=== PATIENT | male | born 1940 | race Caucasian/White ===

== ENCOUNTER 2018-05-28 14:30 | Outpatient (RCR) | payer OTHER, SELFPAY ==
--- NOTE | 2018-05-19 17:10 | PT.OIE ---
Current Diagnoses Benign paroxysmal vertigo, unspecified ear (05/19/18) Benign paroxysmal vertigo, right ear (05/19/18) History of falling (05/19/18) Past Medical History (Last Updated 02/18/18 @ 08:15 by Siri Nettles) Hypertension (Chronic) Macular degeneration, dry (Chronic) Stroke (Resolved) Provider Visit Care Team Role Provider Type Puma Daniels MD Attending Provider Physician Primary Care Provider Specialty: Internal Medicine Address: [address] [place] [address], [id number] Email: Physical Therapy Initial Evaluation PT-OP-A Visit Information Start: 05/19/18 16:57 Freq: Status: Active Protocol: Document 05/19/18 13:45 DCW (Rec: 05/19/18 17:10 DCW [id number]) Out-Patient Physical Therapy Visit Information Visit Information Visit Type Initial Evaluation Visit Start Time 13:45 Visit Stop Time 14:25 Total Visit Minutes 40 Visit Number 1 Number of ACCOUNT EXECUTIVE TRAINEE Visits 0 Evaluation Information Evaluation Date 05/19/18 PT-OP-B Current Condition Start: 05/19/18 16:57 Freq: Status: Active Protocol: Document 05/19/18 13:45 DCW (Rec: 05/19/18 17:10 DCW [id number]) Current Condition History of Current Condition Onset Date s/p 3 months Current Complaints Position-dependent vertigo History of Current Condition Pt is a 77 year old male complaining of a three month history of motion-induced vertigo. Pt reports episodes last 30 seconds. Symptoms are provoked by Looking up or down , and getting into bed. Symptoms began on when he was trying to get up out of his recliner, and every time he tried, he got very dizzy. He ended up needing to go lay down in bed, and eventually went to the walk-in clinic, where he was given pills and exercises, which didn't do anything. Notes that I'm fine when I'm up walking, or sitting, or driving, it's only when I change positions. Pt denies recent hearing changes, tinnitus, diplopia, dysarthria , discoordination, or decreased mentation/ consciousness. Pt reports symptoms are waxing/waning in nature. Pt denies and negative medical history, leaving his entire medical history sheet blank with the exception of dizziness, however later admitted that he has previously suffered a CVA. Treatment Goals Patient/Caregiver Goals I want to stop getting dizzy. Prior Functional Status Baseline Function- ADL's Independent Baseline Function- Mobility Independent Current Functional Impairments (Reported) Functional Limitations- ADL's Sudden onset of vertigo with changes in position PT-OP-C Subjective Start: 05/19/18 16:57 Freq: Status: Active Protocol: Document 05/19/18 13:45 DCW (Rec: 05/19/18 17:10 DCW [id number]) Patient Questionnaires Dizziness Handicap Inventory DHI Score 22% DHI Functional Impairment 20 to 39% Impaired (Score 20- 39) PT-OP-O Vestibular Start: 05/19/18 16:57 Freq: Status: Active Protocol: Document 05/19/18 13:45 DCW (Rec: 05/19/18 17:10 DCW [id number]) Vestibular Assessment Screening Tests Vestibular Artery Screen Negative Sharp-Aysha Test Negative Auditory Tests Jacob Test Negative Rinne Test Negative Air Conduction Results Equal Visual Testing Smooth Pursuits Horizontal Negative Smooth Pursuits Vertical Negative Saccades Horizontal Negative Gaze Evoked Nystagmus With Fixation Negative Gaze Evoked Nystagmus Without Fixation Negative Heave Test Negative Thrust Head Negative Head Shake Negative Spontaneous Nystagmus Negative Positional Testing Sharon-Hallpike Positive Right Negative Left Upbeating < 60 Seconds PT-OP-Q Treatments Start: 05/19/18 16:57 Freq: Status: Active Protocol: Document 05/19/18 13:45 DCW (Rec: 05/19/18 17:10 DCW [id number]) Canalithic Repositioning BPPV Treatment Cordell Affected Canal(s) Right posterior Reps x2 Comments Pt complained of symptoms in the first and third position, which is normally indicative of a successful treatment. PT-OP-T Assessment and Plan Start: 05/19/18 16:57 Freq: Status: Active Protocol: Document 05/19/18 13:45 DCW (Rec: 05/19/18 17:10 DCW [id number]) Physical Therapy Assessment Rehab Potential Rehabilitation Potential Excellent Evaluation Complexity Number of Personal Factors/Comorbidities 0 Number of Body Systems Impaired 1-2 Clinical Presentation at Evaluation Unstable Impairments Impairments Balance Functional Activities Vestibular Goals Three Impairment Pt has positive right [place]- Hallpike Short Term Goal (STG) Pt to have a negative [place]- Hallpike test bilaterally Two Impairment DHI of 22% Short Term Goal (STG) Pt to score at most 10% dysfunction on DGI STG Duration 06/02/18 One Impairment Pt has sudden onset of vertigo when getting into bed Short Term Goal (STG) Pt to demonstrate no symptoms of vertigo when getting into or out of bed for one week. STG Duration 06/02/18 Assessment Summary Assessment During right Sharon-Hallpike test , pt complained of vertigo and demonstrated up-beating, torsional nystagmus lasting approximately 15 seconds, consistent with diagnosis of right-sided posterior canal BPPV, canalithiasis-type. Pt was treated with a right-sided Cordell maneuver. Pt complained of symptoms in the first and third position, which is normally indicative of a successful treatment. Further positional testing was negative. Pt was educated on BPPV, expectations for treatment, possible recurrence (BPPV has a ~50% recurrence rate in the five years following treatment), and post -Cordell restrictions. Pt to return in ~1 week for a follow -up appointment, and intermittently afterward as indicated for treatment of BPPV. Physical Therapy Plan Frequency and Duration Frequency of Treatment 1x/Week Duration of Treatment 6 weeks Plan of Care Start Date 05/19/18 Plan of Care End Date 06/30/18 Therapeutic Interventions Therapeutic Interventions Balance Training Canalithic Repositioning Vestibular Rehabilitation Next Visit Focus/Plan Next Note Type Treatment Note Next Visit Plan Further positional testing, CRM as indicated
--- NOTE | 2018-05-19 17:10 | PT.OPPOC ---
Current Diagnoses Benign paroxysmal vertigo, unspecified ear (05/19/18) Benign paroxysmal vertigo, right ear (05/19/18) History of falling (05/19/18) Provider Visit Care Team Role Provider Type Puma Daniels MD Attending Provider Physician Primary Care Provider Specialty: Internal Medicine Address: [address] [place] [address], [phone] Email: Plan Of Care PT-OP-T Assessment and Plan Start: 05/19/18 16:57 Freq: Status: Active Protocol: Document 05/19/18 13:45 DCW (Rec: 05/19/18 17:10 DCW [id number]) Physical Therapy Assessment Rehab Potential Rehabilitation Potential Excellent Evaluation Complexity Number of Personal Factors/Comorbidities 0 Number of Body Systems Impaired 1-2 Clinical Presentation at Evaluation Unstable Impairments Impairments Balance Functional Activities Vestibular Goals Three Impairment Pt has positive right [place]- Hallpike Short Term Goal (STG) Pt to have a negative [place]- Hallpike test bilaterally Two Impairment DHI of 22% Short Term Goal (STG) Pt to score at most 10% dysfunction on DGI STG Duration 06/02/18 One Impairment Pt has sudden onset of vertigo when getting into bed Short Term Goal (STG) Pt to demonstrate no symptoms of vertigo when getting into or out of bed for one week. STG Duration 06/02/18 Assessment Summary Assessment During right Sharon-Hallpike test , pt complained of vertigo and demonstrated up-beating, torsional nystagmus lasting approximately 15 seconds, consistent with diagnosis of right-sided posterior canal BPPV, canalithiasis-type. Pt was treated with a right-sided Cordell maneuver. Pt complained of symptoms in the first and third position, which is normally indicative of a successful treatment. Further positional testing was negative. Pt was educated on BPPV, expectations for treatment, possible recurrence (BPPV has a ~50% recurrence rate in the five years following treatment), and post -Cordell restrictions. Pt to return in ~1 week for a follow -up appointment, and intermittently afterward as indicated for treatment of BPPV. Physical Therapy Plan Frequency and Duration Frequency of Treatment 1x/Week Duration of Treatment 6 weeks Plan of Care Start Date 05/19/18 Plan of Care End Date 06/30/18 Therapeutic Interventions Therapeutic Interventions Balance Training Canalithic Repositioning Vestibular Rehabilitation Next Visit Focus/Plan Next Note Type Treatment Note Next Visit Plan Further positional testing, CRM as indicated Plan of Care Dates Plan of Care Start Date 05/19/18 Plan of Care End Date 06/30/18 Please Sign and Return: I have reviewed this Plan of Care and certify that the skilled therapy services above are required to meet the patient?s needs. Physician Signature Date Printed Name and Credentials Clinical Instructor Signature Printed Name and Credentials
--- NOTE | 2018-05-28 15:02 | PT.OTN ---
Current Diagnoses Benign paroxysmal vertigo, unspecified ear (05/28/18) Physical Therapy Treatment Note PT-OP-A Visit Information Start: 05/19/18 16:57 Freq: Status: Active Protocol: Document 05/28/18 14:30 DCW (Rec: 05/28/18 15:01 DCW [id number]) Out-Patient Physical Therapy Visit Information Visit Information Visit Type Treatment Note Visit Start Time 14:30 Visit Stop Time 14:47 Total Visit Minutes 17 Visit Number 2 Number of MANAGER URGENT CARE Visits 0 Evaluation Information Evaluation Date 05/19/18 PT-OP-B Current Condition Start: 05/19/18 16:57 Freq: Status: Active Protocol: Document 05/19/18 13:45 DCW (Rec: 05/19/18 17:10 DCW [id number]) Current Condition History of Current Condition Onset Date s/p 3 months Current Complaints Position-dependent vertigo History of Current Condition Pt is a 77 year old male complaining of a three month history of motion-induced vertigo. Pt reports episodes last 30 seconds. Symptoms are provoked by Looking up or down , and getting into bed. Symptoms began on gi when he was trying to get up out of his recliner, and every time he tried, he got very dizzy. He ended up needing to go lay down in bed, and eventually went to the walk-in clinic, where he was given pills and exercises, which didn't do anything. Notes that I'm fine when I'm up walking, or sitting, or driving, it's only when I change positions. Pt denies recent hearing changes, tinnitus, diplopia, dysarthria , discoordination, or decreased mentation/ consciousness. Pt reports symptoms are waxing/waning in nature. Pt denies and negative medical history, leaving his entire medical history sheet blank with the exception of dizziness, however later admitted that he has previously suffered a CVA. Treatment Goals Patient/Caregiver Goals I want to stop getting dizzy. Prior Functional Status Baseline Function- ADL's Independent Baseline Function- Mobility Independent Current Functional Impairments (Reported) Functional Limitations- ADL's Sudden onset of vertigo with changes in position PT-OP-C Subjective Start: 05/19/18 16:57 Freq: Status: Active Protocol: Document 05/28/18 14:30 DCW (Rec: 05/28/18 15:00 DCW [id number]) OP-PT Subjective Patient Comments Patient Comments Pt reports he is doing better , but still a little goofy. PT-OP-O Vestibular Start: 05/19/18 16:57 Freq: Status: Active Protocol: Document 05/28/18 14:30 DCW (Rec: 05/28/18 15:01 DCW [id number]) Vestibular Assessment Positional Testing [place]-Hallpike Positive Right Negative Left Upbeating < 60 Seconds PT-OP-Q Treatments Start: 05/19/18 16:57 Freq: Status: Active Protocol: Document 05/28/18 14:30 DCW (Rec: 05/28/18 15:00 DCW [id number]) Canalithic Repositioning BPPV Treatment Cordell Affected Canal(s) Right posterior Reps x2 Comments Pt complained of symptoms in the first and third position, which is normally indicative of a successful treatment. PT-OP-T Assessment and Plan Start: 05/19/18 16:57 Freq: Status: Active Protocol: Document 05/28/18 14:30 DCW (Rec: 05/28/18 15:00 DCW [id number]) Physical Therapy Assessment Impairments Impairments Balance Functional Activities Vestibular Goals Three Impairment Pt has positive right [place]- Hallpike Short Term Goal (STG) Pt to have a negative [place]- Hallpike test bilaterally Two Impairment DHI of 22% Short Term Goal (STG) Pt to score at most 10% dysfunction on DGI STG Duration 06/02/18 One Impairment Pt has sudden onset of vertigo when getting into bed Short Term Goal (STG) Pt to demonstrate no symptoms of vertigo when getting into or out of bed for one week. STG Duration 06/02/18 Assessment Summary Assessment Pt again had a positive R- sided Hallpike, displaying the same symptoms as at his evaluation, although symptoms were less severe. Pt was treated with a right-sided Cordell maneuver. Pt complained of symptoms in the first and third position, which is normally indicative of a successful treatment. Further positional testing was negative. Physical Therapy Plan Frequency and Duration Frequency of Treatment 1x/Week Duration of Treatment 6 weeks Plan of Care Start Date 05/19/18 Plan of Care End Date 06/30/18 Therapeutic Interventions Therapeutic Interventions Balance Training Canalithic Repositioning Vestibular Rehabilitation Next Visit Focus/Plan Next Note Type Treatment Note Next Visit Plan Further positional testing, CRM as indicated
--- NOTE | 2018-09-22 11:53 | PT.OPDS ---
Current Diagnoses Benign paroxysmal vertigo, unspecified ear (05/28/18) Provider Visit Care Team Role Provider Type Puma Daniels MD Attending Provider Physician Primary Care Provider Specialty: Internal Medicine Address: [address] [place] [address], [facility] Email: Visit Number Visit Number 2 Discharge Summary PT-OP-B Current Condition Start: 05/19/18 16:57 Freq: Status: Active Protocol: Document 05/19/18 13:45 DCW (Rec: 05/19/18 17:10 DCW [id number]) Current Condition History of Current Condition Onset Date s/p 3 months Current Complaints Position-dependent vertigo History of Current Condition Pt is a 77 year old male complaining of a three month history of motion-induced vertigo. Pt reports episodes last 30 seconds. Symptoms are provoked by Looking up or down , and getting into bed. Symptoms began on giving when he was trying to get up out of his recliner, and every time he tried, he got very dizzy. He ended up needing to go lay down in bed, and eventually went to the walk-in clinic, where he was given pills and exercises, which didn't do anything. Notes that I'm fine when I'm up walking, or sitting, or driving, it's only when I change positions. Pt denies recent hearing changes, tinnitus, diplopia, dysarthria , discoordination, or decreased mentation/ consciousness. Pt reports symptoms are waxing/waning in nature. Pt denies and negative medical history, leaving his entire medical history sheet blank with the exception of dizziness, however later admitted that he has previously suffered a CVA. Treatment Goals Patient/Caregiver Goals I want to stop getting dizzy. Prior Functional Status Baseline Function- ADL's Independent Baseline Function- Mobility Independent Current Functional Impairments (Reported) Functional Limitations- ADL's Sudden onset of vertigo with changes in position PT-OP-C Subjective Start: 05/19/18 16:57 Freq: Status: Active Protocol: Document 05/28/18 14:30 DCW (Rec: 05/28/18 15:00 DCW [id number]) OP-PT Subjective Patient Comments Patient Comments Pt reports he is doing better , but still a little goofy. PT-OP-O Vestibular Start: 05/19/18 16:57 Freq: Status: Active Protocol: Document 05/28/18 14:30 DCW (Rec: 05/28/18 15:01 DCW [id number]) Vestibular Assessment Positional Testing [place]-Hallpike Positive Right Negative Left Upbeating < 60 Seconds PT-OP-T Assessment and Plan Start: 05/19/18 16:57 Freq: Status: Active Protocol: Document 09/22/18 11:52 DCW (Rec: 09/22/18 11:53 DCW [id number]) Physical Therapy Assessment Assessment Summary Assessment Pt was instructed to return to vestibular rehabilitation for treatment of BPPV as indicated. Pt has now not been seen in more than 3 months, and will be discharged from skilled therapy at this time. Physical Therapy Plan Frequency and Duration Frequency of Treatment 1x/Week Duration of Treatment 6 weeks Plan of Care Start Date 05/19/18 Plan of Care End Date 06/30/18 Therapeutic Interventions Therapeutic Interventions Balance Training Canalithic Repositioning Vestibular Rehabilitation Discharge Physical Therapy Discharge Reasons No Longer Attending PT Next Visit Focus/Plan Next Note Type Discharge Summary
== END 2018-09-23 13:10 ==
LOC: PHYS 14:30
PROVIDERS: PCP Student in an Organized Health Care Education/Training Program; Visit Provider Student in an Organized Health Care Education/Training Program
DX: H81.10 Benign paroxysmal vertigo, unspecified ear (principal)
CPT/HCPCS: 95992; 97161

== ENCOUNTER → 2018-07-01 14:00 | Outpatient (CLI) | payer OTHER, SELFPAY ==
--- NOTE | 2018-07-01 14:02 | DI.RAD.S_ITS ---
PROCEDURE: XR CHEST 2V INDICATIONS: cough TECHNIQUE: 2 views of the chest were acquired. COMPARISON: [facility], , CHEST 1 VIEW, 01/10/2013, 12:23. FINDINGS: Surgical changes and devices: None. Lungs and pleura: Lungs are clear considering reduced inspiratory volume. No pleural effusions or pneumothorax. Mediastinum: Mediastinal contours are normal. Heart size is normal. Bones and chest wall: No suspicious bony abnormalities. Soft tissues appear unremarkable. IMPRESSION: Reduced inspiratory volume, no source of cough is found. Dictated by: Ivan Tom M.D. on 07/01/2018 at 14:45 Approved by: Ivan Tom M.D. on 07/01/2018 at 14:45
== END ==
PROVIDERS: PCP Student in an Organized Health Care Education/Training Program; Visit Provider Physician Assistant
DX: R05 Cough (principal)
CPT/HCPCS: 71046

== ENCOUNTER → 2019-06-23 14:33 | Outpatient (CLI) | payer MEDICARE, SELFPAY ==
[2019-06-23 15:54] LABS: BUN Creatinine Ratio 24.3 (6-22); Blood Urea Nitrogen 28 mg/dL (9-20); Estimated Glomerular Filt Rate > 60.0 mL/min (>60)
== END ==
PROVIDERS: PCP Student in an Organized Health Care Education/Training Program; Referring Provider Student in an Organized Health Care Education/Training Program; Visit Provider Student in an Organized Health Care Education/Training Program
DX: I10 Essential (primary) hypertension (principal); M19.90 Unspecified osteoarthritis, unspecified site
CPT/HCPCS: 36415; 82565; 84520

== ENCOUNTER 2019-07-24 11:17 | Observation (INO) | payer MEDICARE, SELFPAY ==
[2019-07-24] VITALS (10 sets, daily range): BP systolic 134–189; BP diastolic 70–87; PULSE 56–76; RESP 12–18; TEMP 36.2–37.2; O2SAT 91–99; BMI 34.0
--- NOTE | 2019-07-24 11:21 | DI.CT.S_ITS ---
PROCEDURE: CT ANGIO HEAD AND NECK INDICATIONS: ? head injury, confusion vs cva TECHNIQUE: Noncontrast images were performed earlier in the day and not repeated. After the administration of intravenous contrast, 1 mm thick sections acquired from the aortic arch through the [place]. Post-contrast 4.5 mm thick sections then re-acquired from the foramen magnum to the vertex. 3-dimensional bzmwcsr-ellycobnr-hpuotqwjxg (MIP) and/or volume rendering reformats were acquired of the central intracranial vasculature and neck separately. COMPARISON: [facility], MR, STROKE PROTOCOL, 01/10/2013, 16:07. [facility], CT, CT STROKE, 07/24/2019, 11:14. [facility], CT, CT CERVICAL SPINE WO CON, 07/24/2019, 11:14. FINDINGS: Image quality: Excellent. BRAIN: CSF spaces: Ventricles are normal in size and shape. Basal cisterns are patent. No extra-axial fluid collections. Brain: No midline shift. No intracranial bleeds or masses. Short-white matter interface appears intact. Skull and face: Calvarium and facial bones appear intact, without suspicious lesions. Orbits appear normal. Sinuses: Sinuses and mastoids are clear. HEAD CT ANGIOGRAPHY: Anterior circulation: Intracranial internal carotid arteries are normal in size and flow. The flow within the paired anterior cerebral arteries is normal and symmetric. The flow within the middle cerebral arteries is normal and symmetric. The anterior communicating artery is not well seen. No aneurysms are seen. Posterior circulation: Visualized portions of the vertebral arteries demonstrate normal caliber, and join to form a normal appearing basilar artery. Flow within the posterior cerebral arteries is normal and symmetric. No aneurysms are seen. NECK CT ANGIOGRAPHY: Carotid system: The great vessels demonstrate a conventional anatomy as they arise from the aortic arch. The origins of the common carotid arteries appear patent. The common carotid arteries demonstrate normal caliber and courses. The bifurcation regions demonstrate atherosclerotic irregularity and calcification. The internal carotid arteries demonstrate normal calibers and courses. Posterior circulation: The origins of the vertebral arteries both appear widely patent. The more superior extracranial portions of both vertebral arteries also demonstrate normal courses and calibers. They join to form a normal appearing basilar artery. Soft tissues: Visualized neck soft tissues demonstrate no suspicious abnormalities. Bones: No suspicious bony lesions. Visualized cervical spine appears normally aligned. Degenerative changes are seen, which are most prominent at the C3-C4 level. 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 IMPRESSION: No acute intracranial process is seen. No significant cranial arterial abnormality can be seen. Within the arteries of the neck, no hemodynamically significant stenosis can be seen. Incidental note is made of: CT C3 congenital fusion Focal C3-C4 degenerative change Any quantitative measurements of stenosis were performed using NASCET criteria. Dictated by: Colton Martinez M.D. on 07/24/2019 at 11:25 Approved by: Colton Martinez M.D. on 07/24/2019 at 11:28
--- NOTE | 2019-07-24 11:21 | DI.CT.S_ITS ---
PROCEDURE: CT CERVICAL SPINE WO CON INDICATIONS: ? fall, confusion, cva vs other TECHNIQUE: Noncontrast 3 mm thick sections acquired from the skull base to the T4 level. Sagittal and coronal reformats were then constructed. For radiation dose reduction, the following was used: automated exposure control, adjustment of mA and/or kV according to patient size. COMPARISON: None. FINDINGS: Image quality: Excellent. Bones: No fractures or dislocations. C2-C3 congenital fusion noted. Visualized superior ribs are intact. Mild multilevel degenerative disc changes and facet arthropathy. Soft tissues: Prevertebral soft tissues are normal in thickness. No paravertebral hematomas. No apical pneumothoraces. IMPRESSION: No fracture. No acute osseous lesion. If symptoms and/or clinical suspicion for pathology persists, evaluation with MRI may be helpful for further assessment. Dictated by: Kira Vaughn MD, PhD on 07/24/2019 at 12:05 Approved by: Kira Vaughn MD, PhD on 07/24/2019 at 12:09
--- NOTE | 2019-07-24 11:21 | DI.CT.S_ITS ---
PROCEDURE: CT STROKE INDICATIONS: ? head injury, confusion vs cva tpa possible TECHNIQUE: Noncontrast 4.5 mm thick angled axial sections acquired from the foramen magnum to the vertex, with coronal reformats. For radiation dose reduction, the following was used: automated exposure control, adjustment of mA and/or kV according to patient size. COMPARISON: [facility], CT, HEAD WITHOUT CONTRAST, 01/10/2013, 12:27. FINDINGS: Image quality: Excellent. CSF spaces: Basal cisterns are patent. No extra-axial fluid collections. The ventricles are symmetric in size and shape. Brain: No intracranial bleeds or masses. There is cerebral volume loss for age, with resultant ventricular and sulcal prominence. There are periventricular and deep white matter chronic small vessel ischemic changes. Small chronic left davis radiata lacunar infarct. There is intracranial internal carotid artery atherosclerosis. Skull and face: Calvarium and visualized facial bones appear intact, without suspicious lesions. Sinuses: Visualized sinuses and mastoids are clear. IMPRESSION: 1. No acute intracranial disease process. 2. No intracranial hemorrhage. 3. Findings telephoned to Dr. Markham on 07/24/2019 at 1134 hrs. This study fulfills neurological imaging criteria for inclusion or exclusion of acute stroke therapies based on available published neurological guidelines. Dictated by: Kira Vaughn MD, PhD on 07/24/2019 at 11:33 Approved by: Kira Vaughn MD, PhD on 07/24/2019 at 11:36
--- NOTE | 2019-07-24 11:22 | ED_ITS ---
HPI - Neuro Symptoms/Deficit General Chief Complaint: Neuro Symptoms/Deficit Stated Complaint: Code Stroke Time Seen by Provider: 07/24/19 11:20 Source: patient and EMS Mode of arrival: EMS Limitations: altered mental status History of Present Illness HPI Narrative: This is a 79-year-old male is brought via EMS for possible code stroke. Patient was last witnessed about 40 minutes prior to EMS arrival so approximately 1 hour prior to arrival in the ED with normal mentation. He was in the garage and came in noted that he had some blood in his head there is a small laceration but no witnessed fall. Patient was confused, was not following commands and was stumbling and having difficulty supporting his we ight. He states initially he did not follow any commands, he had word salad.During transportation here he has started to improve his mentation and although not back to his normal baseline sounds like he has been answering questions more appropriately. He has reported history of stroke in the past, he does not take any medications regularly per EMS no anticoagulants. Patient had driven himself to the car wash and return to this morning without any issues and is normally independent with normal mentation. Related Data Home Medications Medication Instructions Recorded Confirmed No Known Home Medications 07/24/19 07/24/19 Allergies Allergy/AdvReac Type Severity Reaction Status Date / Time No Known Drug Allergies Allergy Verified 01/23/19 10:45 Review of Systems Review of Systems ROS Unobtainable: Unobtainable due to mental status/LOC Patient History Medical History Hypertension (Chronic) Sinusitis (Inactive) Stroke (Resolved) Family History (Updated 02/18/18 @ 08:15 by Siri Nettles) Father [place] (myocardial infarction) Mother Leukemia Sister No problems noted. Social History household members: spouse Smoking Status: Never smoker alcohol intake: current Smoking Status: Never smoker Exam Initial Vital Signs Initial Vital Signs: Vital Signs Temperature 97.1 F L 07/24/19 11:20 Pulse Rate 76 07/24/19 11:20 Respiratory Rate 18 07/24/19 11:20 Blood Pressure 189/85 H 07/24/19 11:20 Pulse Oximetry 91 07/24/19 11:20 GEN: well nourished, well appearing male, alert and oriented to self and location, patient appears to be in mild distress. HEENT: Patient has a laceration of the right scalp that is 1cm in length, no active bleeding at this time, pupils are equal round reactive to light, extraocular movements are intact, nares are clear, TMs are clear with no fluid, there is no conjunctival pallor. Throat is clear without any exudates, erythema, tonsillar enlargement or uvular deviation, no facial droop. HEART: Regular rate and rhythm without murmur, clicks, rubs. pulses are equal in upper and lower extremities LUNGS:Lungs clear to auscultation, no wheezes, rales, crackles, chest moves symmetrically ABD:bowel sounds normal, soft, non-tender, no guarding, rebound, rigidity, no masses noted, no hepatosplenomegaly :No CVA tenderness MSCL: Non-tender, no muscle atrophy, muscles strength 5/5 upper and lower extremities, full range of motion, no drift NEURO:CN 2-12 intact, sensation normal, reflexes 2/4 upper and lower extremities. finger nose finger test normal, heel jones test normal on right, squeeze equal bilaterally, very mild difficulty on left Scores NIH Stroke Scale Level of Conciousness: Alert, keenly responsive Ask month/age: Answers both questions correctly. Open/close eyes, close hand: Performs both tasks correctly Best gaze horizontal: Normal Visual weiss: No visual loss Facial palsy: Normal symetrical movement Left arm drift: No drift for full 10 sec Right arm drift: No drift for full 10 sec Left leg drift: No drift for full 10 sec Right leg drift: No drift for full 10 sec Limb ataxia: Present in one limb (very mild) Sensory on face/arms/legs: Normal, no sensory loss Best language: Mild to moderate, slurs some words Dysarthria: Normal Extinction or inattention: No abnormality Total NIH Stroke scale score: 2 Course Orders Ordered: ED Orders 07/24/19 11:20 EKG-12 Lead Stat 07/24/19 11:[address] angio head and neck Stat CT cervical spine wo con Stat 07/24/19 11:29 Complete Blood Count AUTO DIFF Stat Comprehensive Metabolic Panel Stat Partial Thromboplastin Time Stat Prothrombin Time INR Stat Troponin & CK Cardiac Panel Stat 07/24/19 13:05 MR stroke Stat 07/24/19 15:00 Urine Drug Screen, Rapid Stat Acetaminophen (Tylenol) 650 mg PO Q6HR PRN PRN Reason: Fever/Mild Pain (1-3) Last Admin: 07/24/19 16:30 Dose: 650 mg Documented by: TUCKER Enoxaparin Sodium (Lovenox) 40 mg SUBCUT DAILY STIVEN Sodium Chloride (Normal Saline 0.9%) 1,000 mls @ 100 mls/hr IV CONT STIVEN Last Admin: 07/24/19 16:18 Dose: 100 mls/hr Documented by: TUCKER Ondansetron HCl (Zofran) 4 mg IV Q8HR PRN PRN Reason: Nausea And Vomiting Discontinued Medications Aspirin (Aspirin Chew) 324 mg PO NOW ONE Stop: 07/24/19 11:59 Last Admin: 07/24/19 12:19 Dose: 324 mg Documented by: COLLIN Diphtheria/Tetanus/Acell Pertussis (Adacel) 0.5 ml IM .ONCE ONE Stop: 07/24/19 12:11 Last Admin: 07/24/19 12:19 Dose: 0.5 ml Documented by: COLLIN Sodium Chloride (Normal Saline 0.9%) 1,000 mls @ 150 mls/hr IV CONT STIVEN Last Infusion: 07/24/19 14:27 Dose: 0 mls/hr Documented by: Admin: 07/24/19 12:49 Dose: 150 mls/hr Documented by: COLLIN Vital Signs Vital signs: Vital Signs - 8 hr 07/24/19 11:20 07/24/19 12:06 Temperature 97.1 F L Pulse Rate 76 72 Respiratory Rate 18 15 Blood Pressure 189/85 H Blood Pressure [Right Arm] 189/85 H Pulse Oximetry 91 92 MDM - Neuro Symptoms/Deficit Lab Data Attestation: I reviewed the patient's lab results. Result diagrams: 07/24/19 11:29 07/24/19 11:29 Labs: Lab Results 07/24/19 07/24/19 07/24/19 Range/Units 11:29 11:29 11:29 WBC 9.2 (4.5-11.0) X10^3/uL RBC 4.99 (4.5-5.9) X10^6/uL Hgb 16.0 (13.5-17.5) g/dL Hct 46.6 (41-53) % MCV 93.5 (80-100) fL MCH 32.0 (26-34) PG MCHC 34.3 (30-36) % RDW 13.2 (11.6-14.8) % Plt Count 274 (150-400) X10^3/uL Neut % (Auto) 61.4 (50-75) % Lymph % (Auto) 27.8 (25-40) % Barron % (Auto) 8.2 (3-14) % Eos % (Auto) 1.8 L (2-4) % Baso % (Auto) 0.8 (0-2) % Neut # (Auto) 5600 (8334-5005) /uL Lymph # (Auto) 2500 (6123-4036) /uL Barron # (Auto) 800 (0-900) /uL Eos # (Auto) 200 (0-450) /uL Baso # (Auto) 100 (0-100) /uL PT 11.6 (10.1-12.7) SECONDS INR 1.0 (0.9-1.3) APTT 28 (26.4-36.2) SECONDS Sodium 141 (137-145) mmol/L Potassium 3.5 (3.4-5.1) mmol/L Chloride 107 (98-107) mmol/L Carbon Dioxide 16 L (22-32) mmol/L BUN 29 H (9-20) mg/dL Creatinine 1.52 H (0.66-1.25) mg/dL Estimated GFR 44.7 L (>60) mL/min BUN/Creatinine Ratio 19.1 (6-22) Glucose 149 H (80-110) mg/dL Calcium 9.2 (8.4-10.2) mg/dL Total Bilirubin 1.2 (0.2-1.3) mg/dL AST 28 (17-59) IU/L ALT 18 (<50) IU/L Alkaline Phosphatase 83 (38-126) U/L Total Creatine Kinase 61 (55-170) U/L CK-MB (CK-2) TNP CK-MB (CK-2) Rel Index TNP Troponin I < 0.012 (0.01-0.034) ng/mL Total Protein 8.5 H (6.3-8.2) g/dL Albumin 4.4 (3.5-5.0) g/dL Globulin 4.1 (1.7-4.1) g/dL Albumin/Globulin Ratio 1.1 (1.0-2.8) COVID-19 PCR (Negative) 07/24/19 Range/Units 12:01 WBC (4.5-11.0) X10^3/uL RBC (4.5-5.9) X10^6/uL Hgb (13.5-17.5) g/dL Hct (41-53) % MCV (80-100) fL MCH (26-34) PG MCHC (30-36) % RDW (11.6-14.8) % Plt Count (150-400) X10^3/uL Neut % (Auto) (50-75) % Lymph % (Auto) (25-40) % Barron % (Auto) (3-14) % Eos % (Auto) (2-4) % Baso % (Auto) (0-2) % Neut # (Auto) (1995-8624) /uL Lymph # (Auto) (1911-2445) /uL Barron # (Auto) (0-900) /uL Eos # (Auto) (0-450) /uL Baso # (Auto) (0-100) /uL PT (10.1-12.7) SECONDS INR (0.9-1.3) APTT (26.4-36.2) SECONDS Sodium (137-145) mmol/L Potassium (3.4-5.1) mmol/L Chloride (98-107) mmol/L Carbon Dioxide (22-32) mmol/L BUN (9-20) mg/dL Creatinine (0.66-1.25) mg/dL Estimated GFR (>60) mL/min BUN/Creatinine Ratio (6-22) Glucose (80-110) mg/dL Calcium (8.4-10.2) mg/dL Total Bilirubin (0.2-1.3) mg/dL AST (17-59) IU/L ALT (<50) IU/L Alkaline Phosphatase (38-126) U/L Total Creatine Kinase (55-170) U/L CK-MB (CK-2) CK-MB (CK-2) Rel Index Troponin I (0.01-0.034) ng/mL Total Protein (6.3-8.2) g/dL Albumin (3.5-5.0) g/dL Globulin (1.7-4.1) g/dL Albumin/Globulin Ratio (1.0-2.8) COVID-19 PCR Negative (Negative) Point of Care Testing Glucose POC 142 ECG Data Attestation: I personally reviewed and interpreted this ECG as follows: Interpretation: Sinus rhythm left axis deviation, incomplete right bundle branch. Rate of 83 RI 188 QRS of 106 and QTC of 479. No ST elevation or depression. MDM Narrative Medical decision making narrative: Patient comes in he was last seen normal at 9:30 a.m. by his . She states that he came in from the garage he was unsteady confused although she states his medication is improving significantly. He kept asking about their dog. He does not have any medical issues currently and is not on any medications regularly and is not on any anticoagulants. She noticed that there was a gash on his head and that it had been bleeding. It is unclear if patient had a head injury which then caused confusion or if he potentially had a stroke that caused the fall and injury. Patient did have some difficulty on his NIH scale he could not name the cactus but could name other objects. He does have a history of macular degeneration but was able to visualize images. And had possibly some very mild weakness in his right lower extremity in terms of ataxia. Because of recent head laceration and improving symptoms patient seems unlikely candidate for tpa but is within window. There is potential for altered mental status from concussion/head injury although patient does have some mild ataxia on left leg and difficulty with verbalizing cactus on cards. Discussed with Dr. Rhodes from neurology at [facility], he would would like to see and discussed with patient and family via tele stroke. Patient was evaluated by Dr. Rhodes via telestroke, patient has continued to improve his speech even seems to improve he is able to list all of the questions on the card and his ataxia in his left leg is very mild and may be secondary as he is able to elicit that he has been having some issues and weakness in that leg and even had some sciatica recently. He seems to be less confused. states he does seemto be at his baseline at this time. At this time it was decided that tPA is not appropriate for the patient as he is continuing to improve on that the risk versus benefits we will not give. Patient, his and myself are all in agreement with this plan as well. CTA results were also relayed to Dr. Liu, no acute occlusion. Patient BP has also improved. Differential includes CVA/TIA, Closed head injury, seizure versus other. Patient case was discussed with Dr. Castro who accepts for observation, MRI stroke protocal ordered. He did receive ASA 324mg. BP jhas improved although still elevated in department. Critical Care Time Critical Care Time Critical Care Time: Yes Total Critical Care Time: 65 Attestation: The high probability of a clinically significant, sudden or life threatening deterioration of the [neurologic] system(s) required my full and direct attention, intervention and personal management. The aggregate critical care time was [65] minutes. This time is in addition to time spent performing reporte d procedures but includes the following: [x] Data Review and interpretation [x] Patient assessment and monitoring of vital signs [x] Documentation [x] Medication orders and management Discharge Plan Departure Patient Disposition: Admitted as Observation Clinical Impression: Head injury, Laceration of scalp, Acute alteration in mental status Discharge Date/Time: 07/24/19 14:26 Admit Date/Time: 07/24/19 13:07 Admit Provider: Mehrdad Castro
[2019-07-24 11:32] LABS: Add Manual Diff / Slide Review NO; Basophils Absolute Auto 100 /uL (0-100); Basophils Percent Auto 0.8 % (0-2); Eosinophils Absolute Auto 200 /uL (0-450); Eosinophils Percent Auto 1.8 % (2-4); Hematocrit 46.6 % (41-53); Lymphocytes Absolute Auto 2500 /uL (1100-4500); Lymphocytes Percent Auto 27.8 % (25-40); Mean Corpuscular HGB Conc 34.3 % (30-36); Mean Corpuscular Volume 93.5 fL (80-100); Monocytes Absolute Auto 800 /uL (0-900); Monocytes Percent Auto 8.2 % (3-14); Neutrophils Absolute Auto 5600 /uL (1500-7000); Neutrophils Percent Auto 61.4 % (50-75); Platelet Count 274 X10^3/uL (150-400); Red Blood Cell Count 4.99 X10^6/uL (4.5-5.9); Red Cell Distribution Width 13.2 % (11.6-14.8); White Blood Cell Count 9.2 X10^3/uL (4.5-11.0)
[2019-07-24 11:39] LABS: Prothrombin Time 11.6 SECONDS (10.1-12.7)
[2019-07-24 11:42] LABS: PTT Partial Thromboplastin Tim 28 SECONDS (26.4-36.2)
[2019-07-24 11:44] LABS: Alanine Aminotransferase 18 IU/L (<50); Albumin 4.4 g/dL (3.5-5.0); Albumin Globulin Ratio 1.1 (1.0-2.8); Alkaline Phosphatase 83 U/L (38-126); Aspartate Aminotransferase 28 IU/L (17-59); BUN Creatinine Ratio 19.1 (6-22); Bilirubin Total 1.2 mg/dL (0.2-1.3); Blood Urea Nitrogen 29 mg/dL (9-20); Calcium 9.2 mg/dL (8.4-10.2); Carbon Dioxide 16 mmol/L (22-32); Chloride 107 mmol/L (98-107); Creatine Kinase 61 U/L (55-170); Estimated Glomerular Filt Rate 44.7 mL/min (>60); Globulin 4.1 g/dL (1.7-4.1); Glucose 149 mg/dL (80-110); HEMOLYSIS 21 (0-50); Potassium 3.5 mmol/L (3.4-5.1); Sodium 141 mmol/L (137-145); Total Protein 8.5 g/dL (6.3-8.2)
--- NOTE | 2019-07-24 11:51 | PC.NURSE ---
NIH slight limb ataxia in left
[2019-07-24 11:55] LABS: Troponin I < 0.012 ng/mL (0.01-0.034)
[2019-07-24] MEDS: TET,DIPH,PERTUSS(ACELL),VAC/PF 0.5 ML SYRINGE IM (12:19)
[2019-07-24] MEDS: ASPIRIN 81 MG CHEW TAB 324 MG PO (12:19)
[2019-07-24] MEDS: SODIUM CHLORIDE 0.9% 1,000 ML 150 ML IV (12:49)
--- NOTE | 2019-07-24 12:52 | PC.NURSE ---
Patient in room with . Mentation is improving. Pre hospital IV is 18ga EMS right forearm. Primary IV given in hospital is left forearm.
--- NOTE | 2019-07-24 13:05 | DI.MRI.S_ITS ---
PROCEDURE: MR STROKE Pre- and post-contrast brain MRI, non-contrast brain MR angiogram, pre- and postcontrast neck MR angiogram INDICATIONS: possible cva vs head injury TECHNIQUE: Brain: Noncontrast axial T1 spin echo, axial T2 fast spin echo, sagittal and axial FLAIR, coronal T2 fast spin echo, axial gradient echo, axial diffusion and ADC through the brain. After the administration of contrast, axial 3D VIBE of the cranial vasculature and brain. Brain MRA: Non-contrast 3-D time of flight MR angiogram, with multiple zyaegct-omkxugjut-ocmswawhgg (MIP) reformats performed. Neck MRA: Axial and sagittal TruFISP through the neck. Coronal dynamic MR angiogram during administration of contrast in the arterial and venous phases, with 3-dimenstional myudauy-dbtkuuzsj-fhwltsjgfc (MIP) reformats constructed from subtraction images. COMPARISON: [facility], CT, CT ANGIO HEAD AND NECK, 07/24/2019, 11:14. [facility], CT, CT CERVICAL SPINE WO CON, 07/24/2019, 11:14. [facility], CT, CT STROKE, 07/24/2019, 11:14. [facility], MR, STROKE PROTOCOL, 01/10/2013, 16:07. FINDINGS: Image quality: Excellent. BRAIN: CSF spaces: Ventricles are normal in size and shape. Basal cisterns are patent. No extra-axial fluid collections. Brain: No intracranial bleeds or mass effects. Short-white matter interface is normal. Diffusion weighted images show no acute ischemic insults. Brain parenchymal volume loss is seen. Chronic small vessel ischemic changes are seen. Brainstem appears normal. Normal intravascular flow voids are present. No abnormal intracranial enhancement. Skull and face: Calvarial marrow signal is normal. Orbits appear normal. Note is made of bilateral lens replacements. Sinuses: Sinuses and mastoids are clear. BRAIN MR ANGIOGRAM: Anterior circulation: Intracranial internal carotid arteries are normal in size and enhancement. The flow within the paired anterior cerebral arteries is normal and symmetric. The flow within the middle cerebral arteries is normal and symmetric. The anterior communicating artery is seen. No stenoses, occlusions, or aneurysms. Posterior circulation: The visualized portions of the vertebral arteries demonstrate normal caliber, and join to form a normal appearing basilar artery. The flow within the posterior cerebral arteries is normal and symmetric. No stenoses, occlusions, or aneurysms. NECK MR ANGIOGRAM: Carotids: Great vessels demonstrate a conventional anatomy as they arise from the aortic arch. The origins of the common carotid arteries appear patent. The calibers and courses of both common carotid arteries are normal. The bifurcation regions appear normal bilaterally. The internal carotid arteries demonstrate normal course and caliber. 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 Posterior circulation: The origins of the vertebral arteries appear patent. More superior portions of both vertebral arteries demonstrate normal course and caliber, and join to form a normal appearing basilar artery. Miscellaneous: Subclavian arteries appear patent. The previously described right proximal to an artery stenosis is again seen. Pre-contrast images through the neck show no soft tissue abnormalities. IMPRESSION: BRAIN MRI: No findings of acute or subacute infarction can be seen. Note is made of age-appropriate brain parenchymal volume loss and chronic small vessel ischemic changes. No masses or abnormal enhancement can be seen. BRAIN MR ANGIOGRAM: Unremarkable intracranial arteriogram. NECK MR ANGIOGRAM: No significant internal carotid artery or vertebral artery stenosis can be seen. 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 There is again seen focal narrowing of the right proximal subclavian artery. Dictated by: Colton Martinez M.D. on 07/25/2019 at 10:15 Approved by: Colton Martinez M.D. on 07/25/2019 at 10:21
[2019-07-24 15:23] LABS: Ur Creatinine Normal (Normal); Ur Specific Gravity Normal (Normal); Urine pH Normal (Normal)
[2019-07-24 15:23] LABS: COVID19 -Nasal RAPID Negative (Negative)
[2019-07-24 15:24] LABS: UR Morphine/Opiate cutoff 300 Negative (Negative); Urine Amphetamines Negative (Negative); Urine Barbiturates Negative (Negative); Urine Benzodiazepines Negative (Negative); Urine Cocaine Negative (Negative); Urine MDMA Negative (Negative); Urine Methadone Negative (Negative); Urine Methamphetamines Negative (Negative); Urine Oxycodone Negative (Negative); Urine Phencyclidine Negative (Negative); Urine Tetrahydrocannabinol Negative (Negative); Urine Tricyclic Antidepressant Negative (Negative)
--- NOTE | 2019-07-24 15:33 | PC.NURSE ---
Day Shift- Report rec'd from ARIS Keene in ED at 1359. Pt arrived to unit in room 220, settled by NECK BAND MAKER at 1445. Report given to ARIS Cooper Evening shift at 1520.
--- NOTE | 2019-07-24 15:48 | PM.HP.1 ---
History of Present Illness History of Present Illness Date Patient Seen: 07/24/19 Time Patient Seen: 15:48 Chief complaint: Code Stroke Narrative: Mehrdad Rhodes is a 79-year-old male with a past medical history of possible TIA, HTN (not on medication) who presented to the emergency room via EMS for a possible stroke. Patient was in the garage and came into the house and his had noticed that he had some blood in his head and that he was confused, not following commands, and was having difficulty supporting his weight. She stated he was very unsteady on his feet, and she was trying to get him to remain seated on the couch, but he would not listen and repeatedly tried to get up. 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 She noted that he would only say the new puppies name, but not anything else. This is when she called EMS. She did not notice any focal weakness, facial droop, or other abnormality. The patient does not recall the event at all, and states that he remembers waking up on the sofa. He does not recall what happened. states that he may have had a bookshelf as there were some items that are normally on the bookshelf that were on the floor, but she did not notice any blood near the car or elsewhere in the house. He was recently given a prescription for gabapentin, however this was not helping with his left leg sciatica and he had stopped taking it about a week ago. He takes no other medications. He is very functional at baseline. Patient reports of possible TIA in the past, but was never officially diagnosed and has not been on medications. Upon my evaluation, patient is fully alert and oriented and back to baseline. He still feels a bit groggy but much improved. He denies any prior episodes like this, he does not remember falling, or any of the events as noted above. He reports no prior seizures. He does not take any anticoagulants. He denies any prior heart history, and he has had no recent chest pain, shortness of breath, fever, chills, nausea, vomiting, abdominal pain, diarrhea, constipation, lower extremity edema, orthopnea. In the emergency room, patient was hypertensive but other vital signs are unremarkable. Documentations shows a stroke scale of 2 for mild dysarthria as well as some mild left-sided ataxia which may have been due to his known sciatica. Initial CT head did not show any evidence of hemorrhage. CT a head and neck was also unremarkable. Chest x-ray was also unremarkable. Initial laboratory evaluation showed a hemoglobin of 16, but otherwise unremarkable CBC. Chemistries revealed a potassium of 3.5, creatinine of 1.52 from a baseline of 1.1 last month. His glucose was 149. Troponin was negative. U tox was negative. [place] neurology was consulted and did not recommend tPA giving improved in symptoms and unclear diagnosis. Patient was admitted under observation for possible TIA. Patient History Medical History Hypertension (Chronic) Sinusitis (Inactive) Stroke (Resolved) Family & Social History Family History (Updated 02/18/18 @ 08:15 by Siri Nettles) Father [place] (myocardial infarction) Mother Leukemia Sister No problems noted. Safety & Behavioral: Feels Safe in Current Yes Environment Tobacco & Substance use: Smoking Status Never smoker alcohol intake current alcohol intake frequency 0-2 drinks per day Substance Use Type does not use Meds Home Medications and Allergies Home Medications Medication Instructions Recorded Confirmed Type No Known Home Medications 07/24/19 07/24/19 History Allergies Allergy/AdvReac Type Severity Reaction Status Date / Time No Known Drug Allergies Allergy Verified 01/23/19 10:45 Review of Systems Review of Systems Narrative: All other systems reviewed with the patient and are negative unless otherwise stated. Exam Vital Signs (past 8 hours): - 07/24/19 11:20 07/24/19 12:06 07/24/19 13:31 Temperature 97.1 F L Pulse Rate 76 72 64 Respiratory Rate 18 15 17 Blood Pressure 189/85 H Blood Pressure [Right Arm] 189/85 H 151/78 H Pulse Oximetry 91 92 97 07/24/19 14:23 07/24/19 14:26 Temperature 98.3 F Pulse Rate 63 65 Respiratory Rate 12 18 Blood Pressure 151/78 H 148/70 H Blood Pressure [Right Arm] Pulse Oximetry 99 95 Oxygen Delivery Method Room Air Oxygen Flow Rate 0 Narrative Exam Narrative: GENERAL APPEARANCE: Well developed, well nourished, in no acute distress. SKIN: Inspection of the skin reveals no rashes, ulcerations or petechiae. HEENT: Normocephalic, healed laceration on the forehead with dried blood. Extraocular muscles are intact, oropharynx is clear and mucous membranes are moist, neck is supple without adenopathy NECK: Supple and symmetric. There was no thyroid enlargement, and no tenderness, or masses were felt. CHEST: Normal AP diameter and normal contour without any kyphoscoliosis. LUNGS: Auscultation of the lungs revealed no wheezes, rhonchi, or rales. CARDIOVASCULAR: There was a regular rate and rhythm without any murmurs, gallops, rubs. Peripheral pulses were 2+ and symmetric. ABDOMEN: Soft and nontender with normal bowel sounds. No ascites was noted. MUSCULOSKELETAL: There was no tenderness or effusions noted. Muscle strength and tone were normal. EXTREMITIES: No cyanosis, clubbing or edema. NEUROLOGIC: Alert and oriented x 3. Normal affect. Strength is +5/5 in the Upper Extremities and Lower Extremities Bilaterally. Sensation to touch was normal. Rapid alternating movements smooth and coordinated. Objective ECG Impression: Sinus rhythm, rate 83. Left axis deviation. Incomplete right bundle branch block. No evidence of ST elevation or depression. There is P-wave inversion noted in lead 3, no other leads. Labs Result Diagrams: 07/24/19 11:29 07/24/19 11:29 Labs: Laboratory Results - last 24 hr 07/24/19 07/24/19 07/24/19 11:29 11:29 11:29 WBC 9.2 RBC 4.99 Hgb 16.0 Hct 46.6 MCV 93.5 MCH 32.0 MCHC 34.3 RDW 13.2 Plt Count 274 Neut % (Auto) 61.4 Lymph % (Auto) 27.8 [place] % (Auto) 8.2 Eos % (Auto) 1.8 L Baso % (Auto) 0.8 Neut # (Auto) 5600 Lymph # (Auto) 2500 [place] # (Auto) 800 Eos # (Auto) 200 Baso # (Auto) 100 PT 11.6 INR 1.0 APTT 28 Sodium 141 Potassium 3.5 Chloride 107 Carbon Dioxide 16 L BUN 29 H Creatinine 1.52 H Estimated GFR 44.7 L BUN/Creatinine Ratio 19.1 Glucose 149 H Calcium 9.2 Total Bilirubin 1.2 AST 28 ALT 18 Alkaline Phosphatase 83 Total Creatine Kinase 61 CK-MB (CK-2) TNP CK-MB (CK-2) Rel Index TNP Troponin I < 0.012 Total Protein 8.5 H Albumin 4.4 Globulin 4.1 Albumin/Globulin Ratio 1.1 U Opiates 300ng/mL cut Ur Oxycodone Screen Urine Methadone Screen Ur Barbiturates Screen U Tricyclic Antidepress Ur Phencyclidine Scrn Ur Amphetamines Screen U Methamphetamines Scrn Ur MDMA Scrn (Ecstasy) U Benzodiazepines Scrn Urine Cocaine Screen U Marijuana (THC) Screen 07/24/19 15:00 WBC RBC Hgb Hct MCV MCH MCHC RDW Plt Count Neut % (Auto) Lymph % (Auto) [place] % (Auto) Eos % (Auto) Baso % (Auto) Neut # (Auto) Lymph # (Auto) [place] # (Auto) Eos # (Auto) Baso # (Auto) PT INR APTT Sodium Potassium Chloride Carbon Dioxide BUN Creatinine Estimated GFR BUN/Creatinine Ratio Glucose Calcium Total Bilirubin AST ALT Alkaline Phosphatase Total Creatine Kinase CK-MB (CK-2) CK-MB (CK-2) Rel Index Troponin I Total Protein Albumin Globulin Albumin/Globulin Ratio U Opiates 300ng/mL cut Negative Ur Oxycodone Screen Negative Urine Methadone Screen Negative Ur Barbiturates Screen Negative U Tricyclic Antidepress Negative Ur Phencyclidine Scrn Negative Ur Amphetamines Screen Negative U Methamphetamines Scrn Negative Ur MDMA Scrn (Ecstasy) Negative U Benzodiazepines Scrn Negative Urine Cocaine Screen Negative U Marijuana (THC) Screen Negative Assessment & Plan Assessment & Plan narrative: Mehrdad Rhodes is a 79-year-old male with a past medical history of possible TIA, HTN (not on medication) who presented to the emergency room via EMS for a possible stroke. He is admitted under observation status for a possible TIA, other etiologies for this event may include cardiogenic syncope, or trauma with corresponding concussion however will likely not be able to conclusively determine if MRI and echocardiogram are unremarkable. 1. Delirium, acute, present on admission, improved -etiologies include possible TIA given presentation with some slurred speech and ataxia noted by ER provider and These have resolved as of my exam. Further included are possible syncopal episode, potentially cardiac in nature, or traumatic loss of consciousness given head laceration with corresponding concussion. -will obtain MRI brain and echocardiogram for a TIA evaluation and concern for possible stroke. -patient was given full-dose aspirin in the emergency room, will continue 81 mg dose daily -risk stratify with A1c, TSH, lipid panel -Urine drug screen was negative -COVID-19 rapid testing was negative -continue telemetry over concern for possible cardiogenic etiology of syncope. EKG does show an incomplete right bundle-branch block. Troponins negative and patient without chest pains, no indication for repeat troponin at this time. 2. Acute kidney injury, present on admission -creatinine of 1.52, up from baseline of 1.1 approximately a month ago. -patient has not had much p.o. intake today with, will rehydrate and recheck chemistries in the morning. 3. Hypertension, present on admission, likely chronic -continue to follow and will start antihypertensive medications if necessary. His blood pressure is improving without pharmacologic intervention as of this afternoon. Code: Full, elects surrogate decision maker as his Dispo: Admitted under observation as his stay is not expected to exceed 2 midnights, pending MRI of his brain and echocardiogram. DVT: Lovenox daily
[2019-07-24] MEDS: SODIUM CHLORIDE 0.9% 1,000 ML 100 ML IV (16:18)
[2019-07-24] MEDS: ACETAMINOPHEN 325 MG TABLET 650 MG PO (16:30)
[2019-07-25] VITALS: O2SAT 95
[2019-07-25] MEDS: SODIUM CHLORIDE 0.9% 1,000 ML 100 ML IV (02:13)
[2019-07-25 04:00] VITALS: O2SAT 94
[2019-07-25 04:50] VITALS: BP 131/67; PULSE 50; RESP 18; TEMP 36.9; O2SAT 94
[2019-07-25 06:34] LABS: Add Manual Diff / Slide Review NO; Basophils Absolute Auto 100 /uL (0-100); Basophils Percent Auto 0.6 % (0-2); Eosinophils Absolute Auto 100 /uL (0-450); Eosinophils Percent Auto 1.7 % (2-4); Hemoglobin 14.1 g/dL (13.5-17.5); Lymphocytes Absolute Auto 1500 /uL (1100-4500); Lymphocytes Percent Auto 18.1 % (25-40); Mean Corpuscular HGB Conc 34.3 % (30-36); Mean Corpuscular Hemoglobin 31.9 PG (26-34); Mean Corpuscular Volume 93.2 fL (80-100); Monocytes Absolute Auto 800 /uL (0-900); Monocytes Percent Auto 9.7 % (3-14); Neutrophils Absolute Auto 5900 /uL (1500-7000); Neutrophils Percent Auto 69.9 % (50-75); Platelet Count 216 X10^3/uL (150-400); Red Cell Distribution Width 13.3 % (11.6-14.8); White Blood Cell Count 8.4 X10^3/uL (4.5-11.0)
[2019-07-25 06:41] LABS: Hemoglobin A1C% w Est Avg Glu 5.6 % (4.0-6.0)
[2019-07-25 06:46] LABS: Alanine Aminotransferase 15 IU/L (<50); Albumin 3.5 g/dL (3.5-5.0); Alkaline Phosphatase 59 U/L (38-126); Aspartate Aminotransferase 31 IU/L (17-59); BUN Creatinine Ratio 17.6 (6-22); Bilirubin Total 1.4 mg/dL (0.2-1.3); Bilirubin Unconjugated 1.3 mg/dL (0.0-1.1); Blood Urea Nitrogen 23 mg/dL (9-20); Calcium 8.4 mg/dL (8.4-10.2); Carbon Dioxide 24 mmol/L (22-32); Chloride 110 mmol/L (98-107); Estimated Glomerular Filt Rate 53.1 mL/min (>60); Globulin 3.5 g/dL (1.7-4.1); Glucose 94 mg/dL (80-110); HEMOLYSIS < 15 (0-50); Potassium 3.4 mmol/L (3.4-5.1); Sodium 140 mmol/L (137-145)
[2019-07-25 06:56] LABS: Cholesterol 140 mg/dL (140-199); HDL Cholesterol 24 mg/dL (40-60); LDL Cholesterol Calculated 104 mg/dL (<100); Triglycerides 61 mg/dL (35-150)
[2019-07-25 07:14] LABS: TSH w/ Reflex to FT4 0.59 uIU/mL (0.47-4.68)
[2019-07-25 08:00] VITALS: BP 159/93; PULSE 53; RESP 18; TEMP 36.3; O2SAT 96
[2019-07-25] MEDS: SODIUM CHLORIDE 0.9% FLUSH 10 ML IV (08:59)
[2019-07-25] MEDS: ENOXAPARIN 40 MG/0.4 ML SYRINGE SUBCUT (08:59)
[2019-07-25] MEDS: ASPIRIN EC 81 MG TABLET PO (09:00)
[2019-07-25] MEDS: LORazepam 2 MG/ML INJ 1 MG IV (09:56)
[2019-07-25 10:08] VITALS: O2SAT 96
--- NOTE | 2019-07-25 10:25 | PT.IIE ---
Medical History (Last Reviewed 07/24/19 @ 11:25 by Kay Markham DO) Hypertension (Chronic) Sinusitis (Inactive) Stroke (Resolved) Physical Therapy Inpatient Evaluation/Re-Eval M1 PT/OT-IP Prior Functional Status Start: 07/25/19 08:31 Freq: NEEDED Status: Active Protocol: Document 07/25/19 09:59 AW (Rec: 07/25/19 10:25 AW [id number]) Medical Review Prior Functional Status Medical History Reviewed Yes Diet/Fluid Consistency Regular Communication WNL; Pt had mild dysarthria at time of admission per H&P but is an effective verbal communicator at baseline Mobility and Gait Independent without AD. Pt states he walks his puppy in the [place] [facility] up to one hour nearly every day. Activities of Daily Living and IADL's Independent including driving, finances, home management Prior Functional Level (Other details) Pt reports no known falls in the past year. He does not recall the likely fall that precipitated his admission to this episode of care. Social History Household Members spouse Living Arrangements House Number of Floors (Floors) One Floor Number of Stairs To Enter/Railing? 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 He lives with his and 6- month old puppy and is generally active. M2 PT-IP Current Condition Start: 07/25/19 08:31 Freq: NEEDED Status: Active Protocol: Document 07/25/19 09:59 AW (Rec: 07/25/19 10:25 AW [id number]) Physical Therapy Current Condition Current Condition Evaluation Date 07/25/19 Treatment Diagnosis possible TIA/CVA; difficulty in walking Onset Date 07/24/19 M3 PT-IP Subjective Start: 07/25/19 08:31 Freq: NEEDED Status: Active Protocol: Document 07/25/19 09:59 AW (Rec: 07/25/19 10:25 AW [id number]) Subjective Physical Therapy Visit Type Type Initial Evaluation Visit Start Time 09:24 Visit Stop Time 09:45 Total Visit Minutes 21 Physical Therapy Visit Comments Patient Comments Pt is feeling good and is happy to participate with PT Patient Goals To go home at discharge and return to work and regular walks with his dog Therapy Pain Assessment Pain When Pain Assessed During Mobility Pain Present Pain Present Denied Pain M4 PT-IP Mobility and Gait Start: 07/25/19 08:31 Freq: NEEDED Status: Active Protocol: Document 07/25/19 09:59 AW (Rec: 07/25/19 10:25 AW [id number]) PT-Bed Mobility Assessment Supine to Sit Supine to Sit Independent Scooting Scooting to Edge of Bed Independent PT-Transfer Assessment Sit to and From Stand Sit to and from Stand Independent Equipment Transfer Assistive Device None,Gait Belt Orthotic/Prosthetic Devices or Brace: No Transfers Transfer Destination Chair Transfer Technique pt ambulated independently Transfer Ability Level of Assist Independent Comments Mobility Comments Pt performed all bed mobility independently but slowly, complaining of stiffness and difficulty moving on the hospital bed. He stood without AD and ambulated the halls for gait and stairs assessment . Upon return to the room, he transferred indepenently to the chair and was left with OT Gait Assessment Gait Gait Assistance Required: Standby Assistance Distance (Feet) 250 Assistive Devices Assistive Device None,Gait Belt Orthotic/Prosthetic Devices or Brace: No Gait Deviations General Gait Pattern Antalgic,Decreased Feet Clearance,Lateral Trunk Lean, Wide Based Gait Factors Limiting Gait Function Factors Limiting Gait Function Decreased Strength Comments Gait Comments Pt ambulated in the halls with gait notable for lateral trunk lean in right stance; however, he required no assist and ambulated safely. Pt scored 12/12 on Modified Dynamic Gait Index, indicating low risk of falls and low likelihood of vestibular involvement. Stair Climbing Assessment Evaluation Level of Assist On Stairs Independent Devices Stair Climbing Assistive Devices Right Railing Technique/Endurance Stair Climbing Direction Ascend and Descend Stair Climbing Technique Step Over Step,Step to Step Number of Steps Climbed 3 Query Text: Stair Climbing Set # Repetitions (reps) 2 Comments Stair Climbing Comments Pt used the ascending right rail with step over step pattern ascending and step-to pattern descending which he attributed to his underlying LLE sciatica. PT-Balance Assessment Sitting Balance and Reactions Static Sitting Balance Ability Normal Dynamic Sitting Balance Ability Normal Standing Balance and Reactions Static Standing Balance Ability Good Dynamic Standing Balance Ability Good Device Used none Balance Tests Single Limb Standing 5 sec each Romberg normal with eyes open and closed Comments Other Balance Tests/Deviations/Treatment No evidence of imbalance with : static testing or with DGI M5 PT-IP Objective Assessments Start: 07/25/19 08:31 Freq: NEEDED Status: Active Protocol: Document 07/25/19 09:59 AW (Rec: 07/25/19 10:25 [id number]) Orientation Orientation/Cognition Level of Alertness Alert Orientation Name,Day of Week,Place, Situation Language Function Ability No Deficits Noted Safety Awareness Understands Safety Issues Memory Description Short Term Impaired Comments Pt unable to recall events leading to his current hospital admission. He was able to recall 1/3 words after five minutes of distraction ( apple). He attempted to recall table but said desk. He was able to recall francois when given the clue that the object was a coin. Gross Range of Motion Upper Extremity ROM Assessment Within Functional Limits Lower Extremity ROM Assessment Within Functional Limits Strength Lower Extremity Strength Assessment Bilaterally Impaired Hip 4/5 Knee 4+/5 Ankle 5/5 Coordination Assessment Gross Coordination Gross Coordination WNL Assessment Finger to Nose Test Normal Performance Pronation/Supination Test Normal Performance Heel on [place] Test Normal Performance Sensation Assessment Sensation Gross Sensation WNL Comments Sensation Comments Pt states he has had sensation disturbance in his LLE from buttock to knee over the past six months but notices no change at this time. Muscle Tone Muscle Tone WNL Yes M6 PT-IP Treatment Start: 07/25/19 08:31 Freq: NEEDED Status: Active Protocol: Document 07/25/19 09:59 AW (Rec: 07/25/19 10:25 [id number]) Physical Therapy Treatment Education Education Provided Safety Other Treatments Other Treatment Performed Provided education on role of PT, plan of care, and signs of CVA. M7 PT-IP Assessment and Plan Start: 07/25/19 08:31 Freq: NEEDED Status: Active Protocol: Document 07/25/19 09:59 AW (Rec: 07/25/19 10:25 [id number]) PT Summary Assessment and Plan Potential Rehabilitation Potential Excellent Status of Condition at Evaluation Stable Summary Assessment Summary Eddie is a 79 yo man seen for PT evaluation after being admitted following likely fall followed by speech disturbance. He has history of HTN, LLE sciatica, and BPPV. 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 On evaluation, cranial nerve assessment was grossly normal with no sign of occulomotor or vestibular disturbance. Static and dynamic balance were good as demonstrated by modified DGI score of 12/12. Speech was clear and coordination was normal. Pt did appear to struggle with short term memory as he was unable to recall the events leading to his admission; nor was he able to recall 2/3 words he was asked to remember. Purely based on mobility, pt will be safe to discharge to home environment with spouse support as needed. He may benefit from outpatient speech therapy to address memory impairment. Frequency of Treatment Frequency Of Treatment Discharge Discharge Recommendations PT Discharge Recommendations Home Other Discharge Recommendations OP speech therapy Transportation Needs at Discharge Private Vehicle
[2019-07-25 11:56] VITALS: BP 150/88; PULSE 57; RESP 18; TEMP 36.6; O2SAT 97
--- NOTE | 2019-07-25 12:22 | OT.IP.EVAL ---
Past Medical History (Last Reviewed 07/24/19 @ 11:25 by Kay Markham DO) Hypertension (Chronic) Sinusitis (Inactive) Stroke (Resolved) Occupational Therapy Inpatient Evaluation/Re-Eval M1 PT/OT-IP Prior Functional Status Start: 07/25/19 08:31 Freq: NEEDED Status: Active Protocol: Document 07/25/19 15:09 CGR (Rec: 07/25/19 15:28 CGR [email or web address]) Medical Review Prior Functional Status Medical History Reviewed Yes Diet/Fluid Consistency Regular Communication WNL; Pt had mild dysarthria at time of admission per H&P but is an effective verbal communicator at baseline Mobility and Gait Independent without AD. Pt states he [place] his [place] in the [place] up to one hour nearly every day. Activities of Daily Living and IADL's Independent including driving, finances, home management Prior Functional Level (Other details) Pt reports no known falls in the past year. He does not recall the likely fall that precipitated his admission to this episode of care. Social History Household Members spouse Living Arrangements House Number of Floors (Floors) One Floor Number of Stairs To Enter/Railing? 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 He lives with his and 6- month old puppy and is generally active. M2 OT-IP Current Condition Start: 07/25/19 15:09 Freq: Status: Active Protocol: Document 07/25/19 15:09 CGR (Rec: 07/25/19 15:28 CGR [email or web address]) Occupational Therapy Current Condition Current Condition Evaluation Date 07/25/19 Treatment Diagnosis TIA Diagnosis Onset Date 07/24/19 M3 OT- IP Subjective and Pain Start: 07/25/19 15:09 Freq: Status: Active Protocol: Document 07/25/19 15:09 CGR (Rec: 07/25/19 15:28 CGR [email or web address]) OT- Subjective Occupational Therapy Visit Type Type Initial Evaluation Visit Start Time 09:45 Visit Stop Time 10:05 Total Visit Minutes 35 Notes Initial evaluation performed in AM [id number] when pt went to MRI. Returned from [id number] for SLUMS. OT Pain Assessment Pain Present Pain Present Denied Pain M4 OT- IP ADL's Start: 07/25/19 15:09 Freq: Status: Active Protocol: Document 07/25/19 15:09 CGR (Rec: 07/25/19 15:28 CGR [email or web address]) OT [id number] General Evaluation Self-Feeding Ability Independent Comments OT Self-Feeding Comments Lunch duing SLUMS OT ADL-Grooming General Evaluation Grooming Ability Independent Areas Needing Assistance Face Washing Comments OT Grooming Comments standing at sink OT ADL-Oral Care General Eval Oral Care Ability Independent Comments Oral Care Comments standing at sink OT ADL-Dressing General Eval Upper Body Dressing Ability Independent Lower Body Dressing Ability Independent OT ADL-Toileting General Evaluation Toileting Ability Independent OT ADL-Bathing Comments OT Bathing Comments Not assessed M5 OT- IP IADL's Start: 07/25/19 15:09 Freq: Status: Active Protocol: Document 07/25/19 15:09 CGR (Rec: 07/25/19 15:28 CGR [email or web address]) OT-Instrumental Activities of Daily Living Deficits IADL Deficits Identified No Deficits Home Safety Awareness Awareness of Need for Assistance at Home Good Awareness Ability to Problem Solve Emergency Able to Problem Solve Situations Medication Management Medication Management No Deficits Identified Money Management Money Management No Deficits Identified Meal Preparation Meal Preparation No Deficits Identified 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 No Deficits Identified Driving Driving Comments 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 OT- IP Functional Cognition Start: 07/25/19 15:09 Freq: Status: Active Protocol: Document 07/25/19 15:09 CGR (Rec: 07/25/19 15:28 CGR [email or web address]) Cognitive Factors Limiting Selfcare Function Cognitive Ability Level of Alertness Alert Patient Orientation Name,Age,Birthday,Month,Date, Year,Day of Week,Place, Situation Attention Span Ability Capable of Focused Attention, Capable of Sustained Attention Ability to Follow Commands Able to Follow Multi-Step Commands Memory Description Short Term Impaired Safety Awareness No Deficits Noted Problem Solving Ability No deficits Noted Cognitive Tests SLUMS Performed SLUMS d/t noted STM deficits. Pt scored a 22/30 missing points for remembering objects and answering questions from a short paragraph. Pt appeared surprised with the results of this stating that he has to remember things for his work all the time and hasn't had problems. This may be new onset with the current medical situation. OT- Vision and Hearing OT- Hearing Assessment OT- Hearing Assessment Hearing Impaired,Use of Hearing Aids OT- Vision Assessment Vision History Macular Degeneration Visual Attentiveness WFL Occular Pursuits WFL M7 OT- IP Mobility and Balance Start: 07/25/19 15:09 Freq: Status: Active Protocol: Document 07/25/19 15:09 CGR (Rec: 07/25/19 15:28 CGR [email or web address]) OT- Bed Mobility Assessment Rolling Level of Assistance Independent Supine to Sit Supine to Sit Assist Independent Sit to Supine Sit to Supine Assist Independent Scooting Scooting to Edge of Bed Independent Scooting Up and Down in Bed Independent OT-Transfer Assessment Sit to and From Stand Sit to and from Stand Independent Transfers Transfer Ability Independent Technique Transfer Destination Bed,Chair,Toilet Transfer Technique Stand Step Pivot Devices Transfer Assistive Devices None OT- Gait Assessment Gait Gait Assistance Required: Independent Assistive Devices Assistive Device None OT- Balance Assessment Sitting Balance and Reactions Static Sitting Balance Ability Normal Dynamic Sitting Balance Ability Normal M8 OT- IP Objective Assessments Start: 07/25/19 15:09 Freq: Status: Active Protocol: Document 07/25/19 15:09 CGR (Rec: 07/25/19 15:28 CGR [email or web address]) OT Gross Range of Motion Upper Extremity Range of Motion Assessment Within Functional Limits OT Strength Upper Extremity Strength Assessment Within Functional Limits OT- Coordination Assessment Upper Extremity Finger to Nose Test Within Functional Limits Finger Tapping Test Within Functional Limits OT-Muscle Tone Assessment Muscle Tone WNL Yes OT Sensation Assessment Edema Edema Absent M9 OT- IP Assessment and Plan Start: 07/25/19 15:09 Freq: Status: Active Protocol: Document 07/25/19 15:09 CGR (Rec: 07/25/19 15:28 CGR [email or web address]) OT Summary Assessment and Plan Potential Rehabilitation Potential Excellent Analytic Complexity at Evaluation Low Summary OT Impairments Functional Cognition Progress Towards Goals Goals Met Assessment Summary Pt presents after fall at home and confusion. Pt presents on this date at his baseline of IND with the exception on noted memory deficits. Cog assessments performed with a on the SLUMS. Pt would benefit from further cog work up as an outpatient. Requested referal to outpatient from Dr. Castro and notified CM of request. No further OT needs at this time. Frequency of Treatment Frequency Of Treatment Discharge Discharge Recommendations OT Discharge Recommendations Home Transportation Needs at Discharge Private Vehicle
--- NOTE | 2019-07-25 14:27 | PC.NURSE ---
Addendum entered by Sanjana Milan R.N. 07/25/19 15:35: Discharge: IV's dc'd intact. Tele dc'd. Reviewed all d/c instructions thoroughly with patient. No new meds, no usual home meds. Instructed to call PCP office Saturday to schedule f/u 1-3 weeks. Verbalized understanding of all d/c info and stated no further questions. All belongings collected and sent with patient. Wheeled out to private vehicle by this senior mortgage underwriter. Original Note: Shift summary: A&O X3. NIH score 0. Steady on feet with SBA, calls appropriately. Denies pain/discomfort. MRI completed. Tele monitoring ongoing. Call light within reach. ECHO being done in room at this time.
--- NOTE | 2019-07-25 15:03 | P.DS_ITS ---
History of Present Illness History of Present Illness Chief complaint: Code Stroke Narrative: Mehrdad Rhodes is a 79-year-old male with a past medical history of possible TIA, HTN (not on medication) who presented to the emergency room via EMS for a possible stroke. Patient was in the garage and came into the house and his had noticed that he had some blood in his head and that he was confused, not following commands, and was having difficulty supporting his weight. She stated he was very unsteady on his feet, and she was trying to get him to remain seated on the couch, but he would not listen and repeatedly tried to get up. 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 She noted that he would only say the new puppies name, but not anything else. This is when she called EMS. She did not notice any focal weakness, facial droop, or other abnormality. The patient does not recall the event at all, and states that he remembers waking up on the sofa. He does not recall what happened. states that he may have had a bookshelf as there were some items that are normally on the bookshelf that were on the floor, but she did not notice any blood near the car or elsewhere in the house. He was recently given a prescription for gabapentin, however this was not helping with his left leg sciatica and he had stopped taking it about a week ago. He takes no other medications. He is very functional at baseline. Patient reports of possible TIA in the past, but was never officially diagnosed and has not been on medications. Upon my evaluation, patient is fully alert and oriented and back to baseline. He still feels a bit groggy but much improved. He denies any prior episodes like this, he does not remember falling, or any of the events as noted above. He reports no prior seizures. He does not take any anticoagulants. He denies any prior heart history, and he has had no recent chest pain, shortness of breath, fever, chills, nausea, vomiting, abdominal pain, diarrhea, constipation, lower extremity edema, orthopnea. In the emergency room, patient was hypertensive but other vital signs are unremarkable. Documentations shows a stroke scale of 2 for mild dysarthria as well as some mild left-sided ataxia which may have been due to his known sciatica. Initial CT head did not show any evidence of hemorrhage. CT a head and neck was also unremarkable. Chest x-ray was also unremarkable. Initial laboratory evaluation showed a hemoglobin of 16, but otherwise unremarkable CBC. Chemistries revealed a potassium of 3.5, creatinine of 1.52 from a baseline of 1.1 last month. His glucose was 149. Troponin was negative. U tox was negative. [facility] neurolog[facility] was consulted and did not recommend tPA giving improved in symptoms and unclear diagnosis. Patient was admitted under observation for possible TIA. Discharge Providers Provider Date of admission: 07/24/19 13:07 Discharge Date: 07/25/19 Primary care physician: Puma Daniels MD Consults: 07/24/19 15:50 Consult to Discharge Planning Routine Comment: Consult to Occupational Therapy Evaluate & Treat Comment: Physician Instructions: Evaluate and treat Consult to Physical Therapy Evaluate & Treat Comment: Physician Instructions: Evaluate and Treat Discharge provider: Mehrdad Castro DO Summary Hospital Course Discharge Diagnosis: Please see hospital course by problem list noted below Hospital Course: Mehrdad Rhodes is a 79-year-old male with a past medical history of possible TIA, HTN (not on medication) who presented to the emergency room via EMS for a possible stroke. He was admitted under observation status for a possible TIA, other etiologies for this event may include cardiogenic syncope, or trauma with corresponding concussion. MRI was negative for an acute infarct, and telemetry view revealed no cardiogenic source possible syncope. His echocardiogram was also unremarkable with a normal ejection fraction and no wall motion abnormalities. He also had a mild ANTONIO that improved with rehydrati on. His risk stratification labs including TSH, A1c, and cholesterol panel were unremarkable. 1. Delirium, acute, present on admission, improved -etiologies include possible TIA given presentation with some slurred speech and ataxia noted by ER provider, however These resolved as of my exam. Further included are possible syncopal episode, potentially cardiac in nature, or traumatic loss of consciousness given head laceration with corresponding concussion. Given negative workup favor concussion as the most likely etiology. -MRI and echocardiogram as noted above -patient was given full-dose aspirin in the emergency room. Given negative evaluation no further aspirin therapy is recommended -risk stratification labs with A1c, TSH, and lipid panel were unremarkable. -Urine drug screen was negative -COVID-19 rapid testing was negative -EKG did show an incomplete right bundle-branch block. Troponins negative and patient without chest pains. Telemetry did not reveal any cardiac arrhythmias. -OT evaluation revealed a slums score of 22, however this was done after receiving IV benzodiazepine before undergoing MRI, as well as during a possible concussion. OT did recommend outpatient speech or further occupational therapy as an outpatient for repeat examination. 2. Acute kidney injury, present on admission -creatinine of 1.52, up from baseline of 1.1 approximately a month ago. Imp roved to 1.31 the following morning with rehydration. 3. Hypertension, present on admission, likely chronic -patient was mildly hypertensive, but asymptomatic. Recommend outpatient follow-up with primary care provider to check on his symptoms and for a repeat blood pressure check. Exam Vital Signs (past 8 hours): - 07/25/19 08:00 07/25/19 10:08 07/25/19 11:56 Temperature 97.4 F L 97.8 F Pulse Rate 53 L 57 L Respiratory Rate 18 18 Blood Pressure 159/93 H 150/88 H Pulse Oximetry 96 96 97 Oxygen Delivery Method Room Air Oxygen Flow Rate 0 Narrative Exam Narrative: GENERAL APPEARANCE: Well developed, well nourished, in no acute distress. SKIN: Inspection of the skin reveals no rashes, ulcerations or petechiae. HEENT: Normocephalic atraumatic, extraocular muscles are intact, oropharynx is clear and mucous membranes are moist, neck is supple without adenopathy NECK: Supple and symmetric. There was no thyroid enlargement, and no tenderness, or masses were felt. CHEST: Normal AP diameter and normal contour without any kyphoscoliosis. LUNGS: Auscultation of the lungs revealed no wheezes, rhonchi, or rales. CARDIOVASCULAR: There was a regular rate and rhythm without any murmurs, gallops, rubs. Peripheral pulses were 2+ and symmetric. ABDOMEN: Soft and nontender with normal bowel sounds. No ascites was noted. MUSCULOSKELETAL: There was no tenderness or effusions noted. Muscle strength and tone were normal. EXTREMITIES: No cyanosis, clubbing or edema. NEUROLOGIC: Alert and oriented x 3. Normal affect. Gait was normal. Strength is +5/5 in the Upper Extremities and Lower Extremities Bilaterally. Sensation to touch was normal. Objective Labs Result Diagrams: 07/25/19 06:10 07/25/19 06:10 Labs: Laboratory Results - last 24 hr 07/24/19 07/24/19 07/25/19 12:01 15:00 06:10 WBC 8.4 RBC 4.40 L Hgb 14.1 Hct 41.0 MCV 93.2 MCH 31.9 MCHC 34.3 RDW 13.3 Plt Count 216 Neut % (Auto) 69.9 Lymph % (Auto) 18.1 L Worth % (Auto) 9.7 Eos % (Auto) 1.7 L Baso % (Auto) 0.6 Neut # (Auto) 5900 Lymph # (Auto) 1500 Worth # (Auto) 800 Eos # (Auto) 100 Baso # (Auto) 100 Sodium Potassium Chloride Carbon Dioxide BUN Creatinine Estimated GFR BUN/Creatinine Ratio Glucose Hemoglobin A1c Calcium Magnesium Total Bilirubin Conjugated Bilirubin Unconjugated Bilirubin AST ALT Alkaline Phosphatase Total Protein Albumin Globulin Albumin/Globulin Ratio Triglycerides Cholesterol LDL Cholesterol, Calc HDL Cholesterol TSH U Opiates 300ng/mL cut Negative Ur Oxycodone Screen Negative Urine Methadone Screen Negative Ur Barbiturates Screen Negative U Tricyclic Antidepress Negative Ur Phencyclidine Scrn Negative Ur Amphetamines Screen Negative U Methamphetamines Scrn Negative Ur MDMA Scrn (Ecstasy) Negative U Benzodiazepines Scrn Negative Urine Cocaine Screen Negative U Marijuana (THC) Screen Negative COVID-19 PCR Negative 07/25/19 07/25/19 07/25/19 06:10 06:10 06:10 WBC RBC Hgb Hct MCV MCH MCHC RDW Plt Count Neut % (Auto) Lymph % (Auto) Worth % (Auto) Eos % (Auto) Baso % (Auto) Neut # (Auto) Lymph # (Auto) Worth # (Auto) Eos # (Auto) Baso # (Auto) Sodium 140 Potassium 3.4 Chloride 110 H Carbon Dioxide 24 BUN 23 H Creatinine 1.31 H Estimated GFR 53.1 L BUN/Creatinine Ratio 17.6 Glucose 94 Hemoglobin A1c 5.6 Calcium 8.4 Magnesium 2.0 Total Bilirubin 1.4 H Conjugated Bilirubin 0.0 Unconjugated Bilirubin 1.3 H AST 31 ALT 15 Alkaline Phosphatase 59 Total Protein 7.0 Albumin 3.5 Globulin 3.5 Albumin/Globulin Ratio 1.0 Triglycerides 61 Cholesterol 140 LDL Cholesterol, Calc 104 H HDL Cholesterol 24 L TSH 0.59 U Opiates 300ng/mL cut Ur Oxycodone Screen Urine Methadone Screen Ur Barbiturates Screen U Tricyclic Antidepress Ur Phencyclidine Scrn Ur Amphetamines Screen U Methamphetamines Scrn Ur MDMA Scrn (Ecstasy) U Benzodiazepines Scrn Urine Cocaine Screen U Marijuana (THC) Screen COVID-19 PCR Discharge Plan Discharge Plan Patient Disposition: Home Discharge comment: Your admitted to the hospital after an episode of confusion yesterday. It is unclear if this was a TIA, concussion, or syncopal event and your evaluation did not reveal a definitive cause. Your MRI was negative for a stroke and showed no evidence of injuries. Your cardiac monitoring was negative. He should have an evaluation done by speech therapist has recommended by occupational therapy. Please follow-up with her primary care provider in the next 1-2 weeks. Your blood pressure was mildly elevated and you may need to start a medication depending on your blood pressures in the clinic. Discharge orders & Medications Prescriptions: No Action No Known Home Medications RF: 0 Follow up/Referrals: Puma Daniels MD [Primary Care Provider] - Discharge Health Status Health Concerns: Possible TIA, concussion, or syncopal event Acute kidney injury Diet/Activity/Treatments Diet: Diet as Tolerated Activity: As tolerated, do recommend resting over the next 1-2 days Visit Report/Discharge Packet Instructions: How to Prevent Falls Visit Report Forms: Patient Portal/API, Stroke Signs & Symptoms Discharge Data Primary Care Provider: Puma Daniels Attending Provider: Mehrdad Castro Admit Date/Time: 07/24/19 13:07 Discharges patient from system. Discharge Date/Time: 07/25/19 15:37 Quality VTE Deep Vein Thrombosis/Pulmonary Embolism Present on Admission: No
--- NOTE | 2019-07-25 15:49 | CM.IDA ---
Initial DCP Assessment Note: Pt is a 79 yo male, resident of [place]. Patient presents after a fall at home, TIA r/o PCP: Puma Daniels Payer: YULISSA DOW Met w/patient this morning to explain SW role. Patient is in good spirits, states he is eager to return home. 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 Patient has been cleared by the therapy team for return home today. DC order now in place for return home. Patient has indeed suffered from a TIA and will need close outpt f/u P: DC home w/family via pov w/close outpt f/u [facility] Dunbar
--- NOTE | 2019-07-25 15:51 | DI.ECHO.S_ITS ---
[facility] +---------+ [facility] +---------+ : : [address] : : : : [id number] : : : : Phone: [phone]+ Echocardiogram Report + + :Name: JER CHAVEZ Study Date: 07/25/2019 Height: 69 in : :[facility] Weight: 230 lb : : Gender: Male BSA: 2.2 m2 : :: 1940 Age: 79 yrs BP: 150/88 mmHg: :Reason For Study: SYNCOPE VS. TIA : :Ordering Physician: Erickson : :Hospitalist Performed By: Radha Moore : :Referring: JER NGUYEN : + + Interpretation Summary The left ventricle is normal in size. The ejection fraction is estimated to be 60-65%. There has been no significant change since the previous exam. There are no obvious focal wall motion abnormalities noted but poor endocardial definition reduces the sensitivity for the detection of such. Diastolic parameters suggest a relaxation abnormality of the left ventricle, consistent with probable normal filling pressures. The right ventricle is normal in size and function. The right ventricular systolic pressure is estimated to be at least 34 mmHg based on an estimated right atrial pressure of 3 mm Hg. Compared to the prior echo exam, there has been an increase in the severity of pulmonary hypertension (prior RVSP was 28 mmHg). Both atria are normal in size. There is no significant valvular heart disease. The ascending aorta is moderately enlarged nad has increased from 3.7 cm to 4.2 cm. No obvious source for cardiac embolic stroke. Procedure: A two-dimensional transthoracic echocardiogram with color flow and Doppler was performed. The study quality was technically adequate. Comparison is made with the echocardiogram of 01/14/2013. The patient was in sinus bradycardia with heart rates between 54-61 bpm during the exam. Left Ventricle: The left ventricle is normal in size. There is normal left ventricular wall thickness. There is no ventricular septal defect visualized. The ejection fraction is estimated to be 60-65%. There has been no significant change since the previous exam. There are no obvious focal wall motion abnormalities noted but poor endocardial definition reduces the sensitivity for the detection of such. Diastolic parameters suggest a relaxation abnormality of the left ventricle, consistent with probable normal filling pressures. Right Ventricle: The right ventricle is normal in size and function. Atria: Both atria are normal in size. There is no Doppler evidence for an interatrial shunt. Mitral Valve: The mitral valve is normal in structure and function. There is trace mitral regurgitation. Aortic Valve: The aortic valve opens well. There is mild aortic valve sclerosis. There is trace aortic regurgitation. Tricuspid Valve: The tricuspid valve is normal in structure and function. There is a trace or physiologic amount of tricuspid regurgitation. The right ventricular systolic pressure is estimated to be at least 34 mmHg based on an estimated right atrial pressure of 3 mm Hg. Compared to the prior echo exam, there has been an increase in the severity of pulmonary hypertension. Pulmonic Valve: The pulmonic valve is not well visualized. There is no significant valvular heart disease. Great Vessels: The aortic root is normal size. The ascending aorta is moderately enlarged. The aortic arch is normal in size. The IVC is of normal diameter and collapses greater than 50% with a sniff. This suggests a low right atrial pressure of 3 mm Hg. Pericardium/ Pleura There is no pericardial effusion. MMode/2D Measurements & Calculations LVIDd: 5.7 cm LVOT diam: 2.1 cm LVIDs: 3.8 cm Ao root diam: 3.6 cm FS: 32.0 % asc Aorta Diam: 4.2 cm EPSS: 0.61 cm Ao Arch Diam (Prox Trans): 2.5 cm IVSd: 1.1 cm LVPWd: 0.92 cm LV bonilla. diameter/BSA (cm/m^2): 2.6 LV sys. diameter/BSA (cm/m^2): 1.8 LA A2 area: 25.4 cm2 RA long axis: 5.1 cm LA A4 area: 19.9 cm2 RA area: 14.8 cm2 LA length (vol): 5.9 cm RA vol: 36.5 ml LA vol: 72.5 ml RA : 16.6 ml/m2 LA vol index: 33.1 ml/m2 IVC diam: 1.8 cm RVD1 (basal): 3.4 cm RVD2 (mid): 2.8 cm TAPSE: 2.7 cm Doppler Measurements & Calculations Ao V2 max: 166.0 cm/sec LVOT Max Will: 108.4 cm/sec Ao V2 mean: 103.4 cm/sec LV V1 max P.7 mmHg Ao max P.0 mmHg LV V1 VTI: 24.0 cm Ao mean P.9 mmHg BERNADETTE(I,D): 2.9 cm2 Ao V2 VTI: 28.9 cm BERNADETTE(V,D): 2.3 cm2 sev ratio: 0.83 BERNADETTE indexed to BSA (cm^2/m^2): 1.3 MV E max will: 79.1 cm/sec TR max will: 276.3 cm/sec MV A max will: 104.8 cm/sec TR max P.5 mmHg MV E/A: 0.75 PA V2 max: 90.2 cm/sec Med Peak E' Will: 6.4 cm/sec PA V2 mean: 57.9 cm/sec E/E' med: 12.3 PA mean P.5 mmHg Lat Peak E' Will: 6.1 cm/sec PA Accel Time: 0.06 sec E/E' lat: 12.9 E/e' average: 12.6 MV dec time: 0.29 sec MV P1/2t: 84.9 msec MV P1/2t max will: 79.3 cm/sec SV(LVOT): 83.0 ml MVA(P1/2t): 2.6 cm2 Reading Physician:05:11 PM
== END 2019-07-25 15:37 | disposition home or self-care (01) ==
LOC: ED 13:01 → AC 13:08
PROVIDERS: Admitting Provider Internal Medicine; Emergency Provider Emergency Medicine; PCP Student in an Organized Health Care Education/Training Program; Referring Provider Emergency Medicine; Visit Provider Internal Medicine
DX: R29.818 Other symptoms and signs involving the nervous system (principal); N17.9 Acute kidney failure, unspecified; I10 Essential (primary) hypertension; R41.0 Disorientation, unspecified; R47.81 Slurred speech; R27.0 Ataxia, unspecified; Z11.59 Encounter for screening for other viral diseases; I45.10 Unspecified right bundle-branch block; S01.81XA Laceration without foreign body of other part of head, initial encounter
CPT/HCPCS: 36415; 70450; 70496; 70498; 70548; 70553; 72125; 80048; 80053; 80061; 80076; 80305; 82550; 82962; 83036; 83735; 84443; 84484; 85025; 85610; 85730; 87635; 90471; 93005; 93306; 96361; 96372; 96374; 97129; 97161; 97165; 99285; 99291; G0378; 90715; A9579; J1650; J2060; Q9967

== ENCOUNTER → 2019-12-16 09:37 | Outpatient (CLI) | payer MEDICARE, SELFPAY ==
[2019-07-24 15:26] VITALS: BMI 34.0
[2019-12-16 11:03] LABS: BUN Creatinine Ratio 18.3 (6-22); Blood Urea Nitrogen 20 mg/dL (9-20); Calcium 8.7 mg/dL (8.4-10.2); Carbon Dioxide 23 mmol/L (22-32); Chloride 108 mmol/L (98-107); Cholesterol 156 mg/dL (140-199); Estimated Glomerular Filt Rate > 60.0 mL/min (>60); Glucose 90 mg/dL (80-110); HDL Cholesterol 35 mg/dL (40-60); HEMOLYSIS < 15 (0-50); LDL Cholesterol Calculated 104 mg/dL (<100); Potassium 4.3 mmol/L (3.4-5.1); Sodium 138 mmol/L (137-145); Triglycerides 84 mg/dL (35-150)
== END ==
PROVIDERS: PCP Student in an Organized Health Care Education/Training Program; Referring Provider Student in an Organized Health Care Education/Training Program; Visit Provider Student in an Organized Health Care Education/Training Program
DX: E78.5 Hyperlipidemia, unspecified (principal); N17.9 Acute kidney failure, unspecified
CPT/HCPCS: 36415; 80048; 80061

== ENCOUNTER → 2020-04-14 16:27 | Outpatient (CLI) | payer MEDICARE, SELFPAY ==
[2019-07-24 15:26] VITALS: BMI 34.0
[2020-04-14 17:48] LABS: Influenza A - CEPHEID Flu A NEGATIVE (NEGATIVE); Influenza B - CEPHEID Flu B NEGATIVE (NEGATIVE)
[2020-04-14 18:14] LABS: COVID19 -Nasal RAPID Negative (Negative)
== END ==
PROVIDERS: PCP Student in an Organized Health Care Education/Training Program; Visit Provider Student in an Organized Health Care Education/Training Program
DX: R05 Cough (principal); Z20.822 Contact with and (suspected) exposure to COVID-19
CPT/HCPCS: 87502; 87635

== ENCOUNTER → 2021-08-03 08:12 | Outpatient (CLI) | payer MEDICARE, SELFPAY ==
[2019-07-24 15:26] VITALS: BMI 34.0
--- NOTE | 2021-08-03 08:14 | DI.MRI.S_ITS ---
PROCEDURE: MR LUMBAR SPINE WO CON INDICATIONS: Back pain with L sided sciatica >6 weeks TECHNIQUE: Noncontrast sagittal T1 spin echo and T2 fast echo, sagittal STIR, and T2 fast spin echo through the lumbar spine. In cases with scoliosis, additional coronal T2 fast spin echo may be performed. COMPARISON: [facility], CT, ABDOMEN/PELVIS WITH CONTRAST, 10/26/2011, 7:47. FINDINGS: Image quality: Excellent. Alignment and Curvature: There is minimal retrolisthesis seen at L1-L2, L2-L3, L3-L4, and L4-L5. Mild dextroconvex scoliotic curvature is seen. Bone Marrow: Marrow is of normal overall signal. No acute vertebral body compression fractures. Spinal Cord: Conus medullaris terminates at the L1 level. Visualized cord demonstrates normal signal and size. Paraspinous Soft Tissues: No paravertebral masses. The aorta is mildly aneurysmal measuring 4.2 cm AP x 4.7 cm transversely. Apparent bilateral peripelvic cysts can be seen. T12-L1: Normal appearance. L1-L2: Mild loss of disc height is seen. Loss of disc signal is seen. Mild generalized disc bulge is seen. There is a superimposed central disc protrusion. There is a focal annular fissure seen posteriorly. Moderate bilateral neural foraminal narrowing is seen. Mild to moderate central canal narrowing is seen. L2-L3: At least moderate loss of disc height and disc signal can be seen on the left side. Bridging endplate osteophytes are seen. Reactive marrow endplate changes are seen, which are hyperintense on T1-weighted and T2-weighted imaging and most consistent with fatty metaplasia (Modic type II changes). Moderate generalized disc bulge is seen. Mild to moderate facet hypertrophy is seen. There is moderate right-sided and moderate to severe left-sided neural narrowing. There is a degree of compression seen upon the exiting left L2 nerve root. Moderate central canal narrowing is seen. L3-L4: The disc height is well-preserved. Loss of disc signal is seen at this level. Moderate disc bulge is seen, with a central disc extrusion. Along the left posterior aspect of the spinal canal, there is poorly defined soft tissue material seen that measures up to 18 mm, as on series 5, image 21 and on series 4 image 8 and on series 2 image 7. Moderate facet joint hypertrophy is seen. There is moderate to severe bilateral neural foraminal narrowing seen, with an associated a degree of compression seen upon the exiting nerve roots. Severe central canal narrowing is seen. L4-L5: The disc height is well-preserved. Loss of disc signal is seen at this level. Moderate generalized disc bulge is seen. There is a superimposed central disc protrusion. Moderate facet joint hypertrophy is seen. There is moderate to severe bilateral neural foraminal narrowing seen, with an associated a degree of compression seen upon the exiting nerve roots. Moderate central canal narrowing is seen. L5-S1: The disc height and disc signal are relatively well preserved. Mild to moderate disc bulge is seen. There is at least moderate right-sided and moderate left-sided facet hypertrophy. There is moderate left-sided and moderate to severe right-sided neural foraminal narrowing. There is a degree of compression seen upon the exiting right L5 nerve root. No significant central canal narrowing is seen. IMPRESSION: At the L3-L4 level, there is focal abnormal material seen along the posterior left aspect of the spinal canal, with associated severe central canal narrowing. This may be related to a sequestered disc fragment. Neoplasm is possible, yet considered to be much less likely. If clinically appropriate, please consider a follow-up contrast-enhanced lumbar MRI for further evaluation. Focal L2-L3 degenerative change is also seen. Several sites of significant neural foraminal narrowing can be seen, with associated exiting nerve root compression. Mildly aneurysmal abdominal aortic aneurysm, which is new compared to 2012, measuring 4.2 cm AP x 4.7 cm transversely. Dictated by: Colton Martinez M.D. on 08/03/2021 at 13:00 Approved by: Colton Martinez M.D. on 08/03/2021 at 13:08
== END ==
PROVIDERS: Family Provider Student in an Organized Health Care Education/Training Program; PCP Student in an Organized Health Care Education/Training Program; Referring Provider Student in an Organized Health Care Education/Training Program; Visit Provider Student in an Organized Health Care Education/Training Program
DX: M54.32 Sciatica, left side (principal); M47.816 Spondylosis without myelopathy or radiculopathy, lumbar region; M48.061 Spinal stenosis, lumbar region without neurogenic claudication; I71.4 Abdominal aortic aneurysm, without rupture
CPT/HCPCS: 72148

== ENCOUNTER 2021-08-07 03:40 | Emergency (ER) | payer MEDICARE, SELFPAY ==
[2019-07-24 15:26] VITALS: BMI 34.0
--- NOTE | 2021-08-07 04:34 | ED_ITS ---
HPI - CPR General Chief Complaint: Cardiac Arrest/CPR Stated Complaint: CODE BLUE Time Seen by Provider: 08/07/21 04:12 History of Present Illness HPI narrative: 81M nonsmoker with history of hypertension, hyperlipidemia, elevated BMI, newly discovered AAA presents by EMS as CPR in progress. They had been dispatched to his home secondary to near syncope, shortness of breath and chest pain and soon after their arrival he was noted to be unresponsive and lost vital signs. Initial rhythm was PEA, they employed standard ACLS protocol, access by IO, intubation and 5 rounds of ACLS protocol resulted in a return of spontaneous circulation for less than 1 minute, as they were loading him into the ambulance, prepared to go to [facility] he again lost pulses and they redirected to our facility as the closest appropriate facility. He was taken directly into [facility] and the team was waiting. He had been increasingly ill and sessile, largely due to increasing back pain and saw his primary care provider last week for this with an MRI that noted spinal stenosis and an i ncidental finding of a 4.7cm AAA. This evening he became increasingly restless and just prior to his event had gotten himself from the recliner into the wheelchair and was breathless, stating could not breathe Related Data Previous Rx's Medication Instructions Recorded gabapentin 600 mg tablet 600 mg PO TID #90 tab 07/31/21 prednisone 20 mg tablet See Rx Instructions PO DAILY 7 08/04/21 Days #10 tab Allergies Allergy/AdvReac Type Severity Reaction Status Date / Time No Known Drug Allergies Allergy Verified 07/31/21 11:35 Review of Systems Review of Systems ROS Unobtainable: Unobtainable due to medical condition Patient History Medical History (Updated 08/07/21 @ 05:04 by Carl Cota DO) Hypertension Sinusitis Stroke Family History Father [place] (myocardial infarction) Mother Leukemia Sister No problems noted. Social History household members: spouse Smoking Status: Never smoker alcohol intake: current Smoking Status: Never smoker alcohol intake frequency: a few times a week Alcohol type: beer Substance Use Type: does not use Exam Narrative Exam Narrative: GENERAL: [81] year old patient appears stated age. Critical condition, CPR in progress. Intubated. Cyanotic in upper chest, head, and neck HEAD: Atraumatic. Normocephalic. EYES: Pupils fixed. No petechiae or hyphema ENT: Nose without bleeding, purulent drainage. NECK: Trachea midline. Non tender CARDIOVASCULAR: Asystole RESPIRATORY: Clear respirations with bag, intubated GASTROINTESTINAL: Abdomen soft, non-tender, nondistended. EXTREMITIES: No edema, mottled, IO in L tib BACK: Nontender without deformity or crepitance. No flank tenderness. NEURO: intubated. Unresponsive. No meaninful movement at any point Course Course Course Narrative: code team assembled and received sign out from EMS, CPR in progress. Transitioned to our monitor and found to be in PEA. ACLS protocol continued, please see the code sheet for specifics. and daughter were thought to be en route. At each 2 minute interval a brief pulse check (<10 seconds) without palpable pulse or change in ET CO2. Given duration of code and prolonged down time i did veer from ACLS protocal and gave bicarb given presumed acidosis. Given cyanosis above nipples and sedentary lifestyle of late I gave TPA 100mg given high concern for PE. Plan was to circulate the TPA for a few rounds, continuing epi every 3-5 minutes, however on 's arrival she informed us that he was in fact a DNR and she had forgotten to mention it in the heat of the moment when EMS arrived. I confirmed with her his and her wishes and she asked us to stop. Discharge Plan Departure Patient Disposition: Clinical Impression: Cardiac arrest Date/Time: 08/07/21 04:00
[2021-08-07 04:59] VITALS: O2SAT 60
--- NOTE | 2021-08-07 07:17 | PC.NURSE ---
No belongings with patient
== END 2021-08-07 05:40 | disposition expired ==
PROVIDERS: Emergency Provider Emergency Medicine; Family Provider Student in an Organized Health Care Education/Training Program; PCP Student in an Organized Health Care Education/Training Program
DX: I46.9 Cardiac arrest, cause unspecified (principal)
CPT/HCPCS: 92950; 99284; 99285